=== PATIENT | male | born 1935 | race Caucasian/White ===

== ENCOUNTER 2017-11-05 10:47 | Inpatient (IN) | payer MEDICARE, MEDICAID ==
[~2017-11-05] VITALS: Ht 180.3 cm; Wt 75.7 kg
--- NOTE | 2017-11-05 11:05 | NUR ---
BIB PRIVATE EMT FROM [facility] FOR ABDOMINAL PAIN,WEAKNESS AND REFUSING TO EAT X2 DAYS. NAD NOTED, VSS, RESP EVEN AND UNLABORED, PT WAS PUT ON MONITOR, AT BS.
[2017-11-05] MEDS ORDERED: LIDOCAINE 2% JEL UROJET 10 ML MM ONE (11:33)
[2017-11-05 11:39] LABS: BASOPHILS % (AUTO) 0.1 % (0.0-2.0); EOSINOPHILS % (AUTO) 0.1 % (0.0-6.0); HEMATOCRIT 37 % (39-51); HEMOGLOBIN 12.2 g/dL (13.5-17.5); LYMPHOCYTES # (AUTO) 0.8 /CMM (0.8-4.8); LYMPHOCYTES % (AUTO) 4.4 % (20.0-44.0); MEAN CORPUSCULAR HGB CONC 33 g/dl (31.0-36.0); MEAN CORPUSCULAR VOLUME 84 fL (80-96); MONOCYTES # (AUTO) 0.2 /CMM (0.1-1.30); MONOCYTES % (AUTO) 1.2 % (2.0-12.0); NEUTROPHILS # (AUTO) 17.7 /CMM (1.8-8.9); NEUTROPHILS % (AUTO) 94.2 % (43.0-81.0); PLATELET COUNT (AUTO) 124 /CMM (150-450); RDW COEFFICIENT OF VARIATION 14.4 (11.5-15.0); RED BLOOD CELL COUNT(AUTO) 4.41 MIL/uL (4.5-6.0); WHITE BLOOD COUNT (AUTO) 18.7 K/uL (4.3-11.0)
--- NOTE | 2017-11-05 11:39 | NUR ---
MEGAN AT BS.
--- NOTE | 2017-11-05 11:48 | NUR ---
URINE SENT TO LAB
[2017-11-05 11:51] LABS: INR 1.12 (0.85-1.15)
[2017-11-05 11:52] LABS: ALANINE AMINOTRANSFERASE 21 U/L (12-78); ALBUMIN 2.2 g/dL (3.4-5.0); ALKALINE PHOSPHATASE 64 U/L (46-116); ASPARTATE AMINOTRANSFERASE 17 U/L (15-37); BILIRUBIN,DIRECT 0.5 mg/dL (0.0-0.2); BILIRUBIN,TOTAL 0.9 mg/dL (0.2-1.0); CALCIUM, SERUM 9.1 mg/dL (8.5-10.1); CARBON DIOXIDE 28 mmol/L (21-32); CHLORIDE 97 mmol/L (98-107); CREATININE 1.5 mg/dL (0.6-1.3); POTASSIUM 4.4 mmol/L (3.5-5.1); SODIUM SERUM 130 mmol/L (136-145); TOTAL PROTEIN, SERUM 8.1 g/dL (6.4-8.2); UREA NITROGEN, BLOOD 30 mg/dL (7-18)
[2017-11-05 11:53] LABS: APPEARANCE,URINE Cloudy (CLEAR); BILIRUBIN,URINE SMALL (NEGATIVE); BLOOD, URINE Small Ery/uL (NEGATIVE); COLOR,URINE Orange (YELLOW); KETONES,URINE Trace (NEGATIVE); LEUKOCYTE ESTERASE ,URINE Negative (NEGATIVE); NITRITE, URINE Negative (NEGATIVE); PH,URINE 5.5 (5.0-8.0); PROTEIN,URINE 100 mg/dl (NEGATIVE); UGLUCOSE 100 MG/DL mg/dL (NEGATIVE)
[2017-11-05 11:54] LABS: TROPONIN I < 0.017 ng/mL (0.00-0.056)
[2017-11-05 11:57] LABS: GLUCOSE 376 mg/dL (74-106)
[2017-11-05 12:18] LABS: BAND % (MANUAL) 1 % (0.0-5.0); BASOPHILS % (MANUAL) 0 % (0.0-2.0); EOSINOPHILS % (MANUAL) 1 % (0-4); LYMPHOCYTES % (MANUAL) 4 % (16-48); MONOCYTES % (MANUAL) 10 % (0-11.0); NEUTROPHILS % (MANUAL) 80 (42-76); REACTIVE LYMPHOCYTES 4 % (0-0)
--- NOTE | 2017-11-05 12:25 | NUR ---
cirilo ruffin - paged via exchange
[2017-11-05] MEDS ORDERED: VANCOMYCIN 1 GM in IV D5W 250 ML IV ONE (12:30)
[2017-11-05] MEDS ORDERED: IV NS 0.9% 1,000 ML BAG IV ONE (12:30)
[2017-11-05] MEDS ORDERED: PIPERACILLIN /TAZOBACTAM 3.375 G in IV D5W 50 ML IV ONE (12:30)
--- NOTE | 2017-11-05 12:35 | NUR ---
CALLED NURSING LINING PRINTER FOR TELE BED
--- NOTE | 2017-11-05 12:46 | NUR ---
PT TO CTSCAN
--- NOTE | 2017-11-05 14:00 | NUR ---
RECEIVED REPORT FROM YISSEL REGARDING THE PATIENT. PATIENT IS BEING ADMITTED TO TELEMETRY FLOOR BY DR. ZAMAN
[2017-11-05 14:24] LABS: BACTERIA,URINE Rare /HPF (None Seen); SQUAMOUS EPITHELIAL CELL,UR Few /HPF (None Seen)
--- NOTE | 2017-11-05 14:30 | NUR ---
CONSTRUCTION CARPENTER ADMITTING NOTE RECEIVED PATIENT FROM THE ER ON A GURNEY. PATIENT IS STABLE. VITAL SIGNS STABLE. ALERT ORIENTED X2-3, DIFFICULT TO ASSESS DUE TO PATIENT'S UNCLEAR SPEECH. COOPERATIVE. ON 2L O2 VIA NC TOLERATING WELL. IN NO APPARENT DISTRESS OR DISCOMFORT AT THIS TIME. RESPIRATIONS EVEN AND UNLABORED. DENIES PAIN AND SOB AT THIS TIME. PATIENT WAS MADE COMFORTABLE IN BED. CLEANED AND CHANGED. SKIN ASSESSED, PICTURES OF TAKEN PLACED. PHYSICAL ASSESSMENT COMPLETED, HISTORY OBTAINED FROM PREVIOUS RECORDS. PATIENT WAS PLACED ON TAVERN OPERATOR. CURRENTLY IS SINUS TACHY WITH HR OF 111. RIGHT AC 18G IVC SL, PATENT AND INTACT. PATIENT IS INCONTINENT WITH DIAPER. BELONGINGS ARE IN A BAG, CHECKED AND NOTED ON THE FORM. DR ZAMAN WAS NOTIFIED ABOUT PATIENT'S ARRIVAL. WILL CARRY OUT ALL THE ORDERS AND CONTINUE TO MONITOR.
--- NOTE | 2017-11-05 15:30 | NUR ---
DR ZAMAN AT PATIENT'S BEDSIDE. WAS ORDERED VERBALLY TO CONTINUE ALL PATIENT'S HOME MEDICATIONS, MEDICATION LIST REVIEWED WITH THE DOCTOR. FURTHER ORDERS WILL BE PLACED BY HIM . WILL CARRY OUT AND CONTINUE TO MONITOR.
[2017-11-05 16:00] VITALS: BP 130/90
[2017-11-05] MEDS ORDERED: ASPI-1152 PO (16:51)
[2017-11-05] MEDS ORDERED: ATOR10TA PO (16:51)
[2017-11-05] MEDS ORDERED: DIPH1TAB PO (16:51)
[2017-11-05] MEDS ORDERED: BENA20TA9 PO (16:51)
[2017-11-05] MEDS ORDERED: METO-356 PO (16:51)
[2017-11-05] MEDS ORDERED: CHOL100040 PO (16:51)
[2017-11-05] MEDS ORDERED: LINA5TAB PO (16:51)
[2017-11-05 17:00] VITALS: BP 160/87
[2017-11-05] MEDS ORDERED: DEXTROSE 50%-WATER 50 ML DISP.SYRIN IV PRN (17:30)
[2017-11-05] MEDS ORDERED: ALBUTEROL HALF STRENGTH 1.25 MG/3 ML VIAL.NEB NEB PRN (17:30)
[2017-11-05] MEDS ORDERED: METOPROLOL SUCCINATE 25 MG TAB.SR.24H PO SCH (17:30)
--- NOTE | 2017-11-05 17:30 | NUR ---
FINGERSTICK BLOOD GLUCOSE WAS CHECKED. READING OF 204. AWAITING FOR PHARMACY TO DELIVER PATIENT'S ORDERED INSULIN TO ADMINISTER ACCORDINGLY. WILL CONTINUE TO MONITOR.
[2017-11-05] MEDS: METOPROLOL SUCCINATE 25 MG TAB.SR.24H PO SCH (17:50)
[2017-11-05] MEDS: BLOOD SUGAR DIAGNOSTIC 1 EACH STRIP IN SCH ×2 (18:00→22:20)
--- NOTE | 2017-11-05 19:00 | NUR ---
AIR BREAKER OPERATOR CLOSING NOTE PATIENT IN BED. ALERT ORIENTED X3. SPEECH IS UNCLEAR, PATIENT HAS DIFFICULTY EXPRESSING NEEDS AT TIMES. ON 2L O2 VIA NC TOLERATING WELL. IN NO APPARENT DISTRESS OR DISCOMFORT AT THIS TIME. RESPIRATIONS EVEN AND UNLABORED. PATIENT IS CURRENTLY RECEIVING ANTIBIOTIC THERAPY. RIGHT AC 18G IVC, PATENT AND INTACT. KEPT CLEAN AND COMFORTABLE, ALL NEEDS ATTENDED, SAFETY MEASURES IN PLACE, BED IN LOW LOCKED POSITION, SIDE RAILS UP X2, CALL LIGHT WITHIN EASY REACH. WILL ENDORSE TO PM NURSE FOR MOISES.
[2017-11-05] MEDS: CEFTRIAXONE 1 G in IV D5W 50 ML IV SCH (19:10)
--- NOTE | 2017-11-05 19:25 | NUR ---
RN OPENING NOTES RECEIVED PT IN BED, ALERT AND ORIENTED X 2-3, SPEECH IS UNCLEAR BUT IS ABLE TO MAKE NEEDS KNOWN. DENIES ANY CHEST PAIN. ALL PATIENT'S NEEDS ATTENDED TO AT THIS TIME, NO SOB, BREATHING EVEN AND UNLABORED. PLACED CALL LIGHT WITHIN EASY REACH. BED IN LOW POSITION AND LOCKED IN PLACE. ON TELE MONITORING WITH ST @ 106 BPM. WILL CONTINUE TO MONITOR.
[2017-11-05 20:00] VITALS: BP 140/71
[2017-11-05] MEDS ORDERED: IBUPROFEN 600 MG TABLET PO PRN (20:30)
[2017-11-05] MEDS: DOXYCYCLINE HYCLATE (100 MG) 100 MG TABLET PO SCH (21:11)
[2017-11-05] MEDS ORDERED: ATORVASTATIN 10 MG TABLET PO SCH (22:00)
[2017-11-05] MEDS: INSULIN GLARGINE, 100 UNIT/ML CARTRIDGE SQ SCH (22:21)
[2017-11-05] MEDS: INSULIN ASPART/LISPRO 100 UNIT/ML CARTRIDGE SQ PRN (22:22)
[2017-11-06] VITALS (7 sets, daily range): BP systolic 93–145; BP diastolic 51–82
[2017-11-06] MEDS: BLOOD SUGAR DIAGNOSTIC 1 EACH STRIP IN SCH ×4 (06:34→21:28)
[2017-11-06] MEDS: INSULIN ASPART/LISPRO 100 UNIT/ML CARTRIDGE SQ PRN ×4 (06:35→21:35)
--- NOTE | 2017-11-06 06:40 | NUR ---
RN CLOSING NOTES PATIENT IN BED, ASLEEP BUT EASILY EASILY AROUSABLE, NO SOB NOTED, SLEPT WELL IN THIS SHIFT, PT BREATHING EVEN AND UNLABORED, REMAINS TO BE AFEBRILE. ON TELE MONITORING WITH ST/SR 80-100s. ALL PATIENT'S NEEDS ATTENDED TO, BED IN LOW POSITION AND LOCKED IN PLACE. CALL LIGHT PLACED WITHIN EASY REACH. WILL ENDORSE TO AM SHIFT NURSE FOR CONTINUITY OF CARE.
--- NOTE | 2017-11-06 07:20 | NUR ---
ORTHOPEDICS TEACHER OPENING NOTE RECEIVED PATIENT IN BED. ALERT ORIENTED X2-3. SPEECH IS UNCLEAR HENCE DIFFICULT TO EXPRESS NEEDS. ON 2L O2 VIA NC TOLERATING WELL. IN NO APPARENT DISTRESS OR DISCOMFORT AT THIS TIME. RESPIRATIONS EVEN AND UNLABORED. DENIES PAIN AND SOB AT THIS TIME. RIGHT AC 18G IVC, SALINE LOCK, PATENT AND INTACT. KEPT CLEAN AND COMFORTABLE, ALL NEEDS ATTENDED, SAFETY MEASURES IN PLACE, BED IN LOW LOCKED POSITION, SIDE RAILS UP X2, CALL LIGHT WITHIN EASY REACH. WILL CONTINUE TO MONITOR.
[2017-11-06 07:29] LABS: URIC ACID 4.5 mg/dL (2.6-7.2)
[2017-11-06] MEDS ORDERED: BENAZEPRIL HCL 5 MG TABLET PO SCH (09:00)
[2017-11-06] MEDS ORDERED: ASPIRIN EC 81 MG TABLET.DR PO SCH (09:00)
[2017-11-06] MEDS ORDERED: DIPHENOXYLATE HCL/ATROP SULF 1 UDTAB TABLET PO PRN (09:00)
[2017-11-06] MEDS: ATORVASTATIN 10 MG TABLET PO SCH (09:10)
[2017-11-06] MEDS: ASPIRIN EC 81 MG TABLET.DR PO SCH (09:10)
[2017-11-06] MEDS: LINAGLIPTIN 5 MG TABLET PO SCH (09:10)
[2017-11-06] MEDS: DOXYCYCLINE HYCLATE (100 MG) 100 MG TABLET PO SCH ×2 (09:10→20:38)
[2017-11-06] MEDS: BENAZEPRIL HCL 20 MG TABLET PO SCH (09:10)
--- NOTE | 2017-11-06 13:41 | NUR ---
RECEIVED TELEPHONE ORDER FROM DR. ZAMAN TO GIVE MOTRIN 600MG PO Q6HRS PRN FOR MILD PAIN LEVEL 1-3. ORDER READ BACK AND VERIFIED. WILL CARRY OUT AND CONTINUE TO MONITOR.
[2017-11-06] MEDS: IBUPROFEN 600 MG TABLET PO PRN (14:55)
[2017-11-06] MEDS: CEFTRIAXONE 1 G in IV D5W 50 ML IV SCH (17:06)
[2017-11-06] MEDS: METOPROLOL SUCCINATE 25 MG TAB.SR.24H PO SCH (17:07)
--- NOTE | 2017-11-06 18:28 | NUR ---
PULP MAKING PLANT OPERATOR CLOSING NOTE PATIENT IN BED. ALERT ORIENTED X3. SPEECH IS UNCLEAR. ON 2L O2 VIA NC TOLERATING WELL. IN NO APPARENT DISTRESS OR DISCOMFORT AT THIS TIME. RESPIRATIONS EVEN AND UNLABORED. PATIENT ON TELE MONITORING WITH SINUS RHYTHM/SINUS TACHY 90-110 THROUGHOUT THE SHIFT. NO FEVER PRESENT, RIGHT SHOULDER PAIN, CONTROLLED WITH PAIN MEDICATION. RIGHT AC 18G IVC, PATENT AND INTACT. KEPT CLEAN AND COMFORTABLE, ALL NEEDS ATTENDED, ALL DUE MEDICATIONS GIVEN. SAFETY MEASURES IN PLACE, BED IN LOW LOCKED POSITION, SIDE RAILS UP X3, CALL LIGHT WITHIN EASY REACH. WILL ENDORSE TO PM NURSE FOR MOISES.
--- NOTE | 2017-11-06 18:46 | NUR ---
PATIENT REPORTS FEELING WEAK AND SLEEPY. NOTED MILD PERSPIRATION, PATIENT IS AFEBRILE. VITAL SIGNS ARE WNL. BLOOD GLUCOSE CHECKED READING IS 202. RECEIVED DAILY ORDERED ANTIBIOTIC THERAPY. DECREASED ROOM TEMPERATURE TO COLLER. WILL CONTINUE TO MONITOR FOR CHANGES AT THIS TIME.
--- NOTE | 2017-11-06 20:15 | NUR ---
recieved asleep. resp even and unlabored. 02 on 2 liters skin warm and dry. answers when name spoken speech mumbled but able to understand him when he asked what time it was
[2017-11-06] MEDS: INSULIN GLARGINE, 100 UNIT/ML CARTRIDGE SQ SCH (21:36)
[2017-11-07] VITALS (7 sets, daily range): BP systolic 112–166; BP diastolic 69–99
--- NOTE | 2017-11-07 05:09 | NUR ---
ENDING NOTES: SLEPT THRU THE NIGHT. NO SOB O2 2 LITERS N/C THIS 12 HOURS SATS ABOVE 92%. NOTED HE C/O RIGHT SHOULDER DISCOMFORT WHEN TURNED TO THE RIGHT SIDE OR RIGHT ARM IS LIFTED. HE REMAINS ALERT AND ORIENTATED X3 THIS 12 HOURS. COOPERATIVE AND PLEASENT. NOTED SACRAL REDNESS APPEARS TO BE INCONTINENT SKIN DAMAGE . HE IS NOT COOPERATIVE ABOUT LYING ON HIS SIDES, PILLOWS PLACED TO ASSIST HIS TO LAY ON HIS SIDE.\, HE SCOOTS OFF THE PILLOWS AND WILL BE ON HIS BACK. INCONTINENT, WEARING DIAPER.
[2017-11-07] MEDS: INSULIN ASPART/LISPRO 100 UNIT/ML CARTRIDGE SQ PRN ×4 (06:12→21:51)
[2017-11-07] MEDS: BLOOD SUGAR DIAGNOSTIC 1 EACH STRIP IN SCH ×4 (06:14→21:43)
--- NOTE | 2017-11-07 07:15 | NUR ---
TELE/RN OPENING NOTE THE PATIENT IS RECEIVED IN BED. PATIENT AWAKE. ALERT AND ORIENTED X2. DENIES SOB. RECEIVING OXYGEN 2L/MIN VIA NASAL CANNULA. DENIES PAIN AT THIS TIME. RIGHT HAND G 20 PATENT AND SALINE LOCKED. PATIENT ON TELE BOX MONITORING AND READING IS SR 98 WITH PAC AND PVC. THE PATIENT IN NO APPARENT DISTRESS. BED LOW AND LOCKED. SIDE RAILS UP X3. CALL LIGHT WITHIN REACH. WILL CONTINUE TO MONITOR.
[2017-11-07 07:31] LABS: BASOPHILS # (AUTO) 0.1 /CMM (0.0-0.2); BASOPHILS % (AUTO) 0.3 % (0.0-2.0); EOSINOPHILS % (AUTO) 0.1 % (0.0-6.0); HEMATOCRIT 33 % (39-51); HEMOGLOBIN 10.8 g/dL (13.5-17.5); LYMPHOCYTES # (AUTO) 1.2 /CMM (0.8-4.8); LYMPHOCYTES % (AUTO) 6.7 % (20.0-44.0); MEAN CORPUSCULAR HGB CONC 33 g/dl (31.0-36.0); MEAN CORPUSCULAR VOLUME 84 fL (80-96); MONOCYTES # (AUTO) 0.7 /CMM (0.1-1.30); MONOCYTES % (AUTO) 3.6 % (2.0-12.0); NEUTROPHILS # (AUTO) 16.5 /CMM (1.8-8.9); NEUTROPHILS % (AUTO) 89.3 % (43.0-81.0); PLATELET COUNT (AUTO) 101 /CMM (150-450); RDW COEFFICIENT OF VARIATION 14.3 (11.5-15.0); RED BLOOD CELL COUNT(AUTO) 3.89 MIL/uL (4.5-6.0); WHITE BLOOD COUNT (AUTO) 18.5 K/uL (4.3-11.0)
[2017-11-07] MEDS: IBUPROFEN 600 MG TABLET PO PRN (08:31)
[2017-11-07] MEDS: LINAGLIPTIN 5 MG TABLET PO SCH (08:32)
[2017-11-07] MEDS: DOXYCYCLINE HYCLATE (100 MG) 100 MG TABLET PO SCH ×2 (08:32→20:50)
[2017-11-07] MEDS: ATORVASTATIN 10 MG TABLET PO SCH (08:33)
[2017-11-07] MEDS: BENAZEPRIL HCL 20 MG TABLET PO SCH (08:33)
[2017-11-07] MEDS: ASPIRIN EC 81 MG TABLET.DR PO SCH (08:37)
--- NOTE | 2017-11-07 12:21 | NUR ---
MS/RN NOTE PATIENT IS SEEN BY DR ZAMAN. MD IS MADE AWARE OF BNP RESULT AND NO NEW ORDERS AT THIS TIME. OBTAINED WOUND CONSULT ORDER. NOTED AND CARRIED OUT.
[2017-11-07] MEDS ORDERED: DICLOFENAC 0.1% OPTH DROPS 5 ML BOTTLE EACHEYE SCH (17:00)
[2017-11-07] MEDS: CEFTRIAXONE 1 G in IV D5W 50 ML IV SCH (18:03)
[2017-11-07] MEDS: METOPROLOL SUCCINATE 25 MG TAB.SR.24H PO SCH (18:03)
--- NOTE | 2017-11-07 18:19 | NUR ---
MS/RN CLOSING NOTE PATIENT IS ALERT AND ORIENTED X2. IN ROOM AIR AND DENIES PAIN AT THIS TIME. RESPIRATION REGULAR AND UNLABORED. DENIES PAIN AT THIS TIME. RIGHT HAND G 20 PATENT AND IV ATB INFUSING WITH NO S/S INFILTRATION. NO ADVERSE REACTIONS NOTED. PATIENT IS INCONTINENT ON BOWEL AND BLADDER. GOOD AND GENTLE SKIN CARE RENDERED. KEPT CLEAN, DRY AND COMFORTABLE. TURNED AND REPOSITIONED Q2HR AND NEEDED. THE MEPILEX IS APPLIED ON SACRAL AREA, WAITING FOR WOUND CONSULT. BED LOW AND LOCKED. SIDE RAILS UP X3. CALL LIGHT WITHIN REACH. WILL ENDORSE TO PUBLIC RELATIONS ANALYST.
--- NOTE | 2017-11-07 19:10 | NUR ---
MS RN OPENING NOTE Patient was seen sitting upright in bed AAOx1, breathing on 2L NC with no SOB, and no signs of acute distress. Patient has history of dementia and "sun-downing"; speech is somewhat garbled. IV in the right hand is intact and patent. Bed is low/locked position, two side rails up, bed alarm on, and call morley within reach. Patient was made comfortable in bed and has no immediate needs at this time. Will continue to monitor.
[2017-11-07] MEDS: DICLOFENAC TOPICAL 100 GM GEL..GM. TP SCH (20:50)
[2017-11-07] MEDS ORDERED: MISCELLANEOUS MED 1 EA EA XX SCH (21:00)
[2017-11-07] MEDS: INSULIN GLARGINE, 100 UNIT/ML CARTRIDGE SQ SCH (21:44)
[2017-11-08 06:21] LABS: EOSINOPHILS % (AUTO) 0.4 % (0.0-6.0); HEMATOCRIT 31 % (39-51); HEMOGLOBIN 10.1 g/dL (13.5-17.5); LYMPHOCYTES # (AUTO) 1.9 /CMM (0.8-4.8); MEAN CORPUSCULAR HGB CONC 32 g/dl (31.0-36.0); MEAN CORPUSCULAR VOLUME 86 fL (80-96); MONOCYTES % (AUTO) 14.2 % (2.0-12.0); NEUTROPHILS % (AUTO) 76.4 % (43.0-81.0); PLATELET COUNT (AUTO) 101 /CMM (150-450); RDW COEFFICIENT OF VARIATION 15.7 (11.5-15.0); RED BLOOD CELL COUNT(AUTO) 3.63 MIL/uL (4.5-6.0)
[2017-11-08] MEDS: BLOOD SUGAR DIAGNOSTIC 1 EACH STRIP IN SCH ×4 (06:37→21:45)
--- NOTE | 2017-11-08 07:12 | NUR ---
MS RN NOTES PATIENT IN BED ALERT ORIENTED X 1-2. NO ACUTE DISTRESS NOTED. BREATHING UNLABORED. NO SOB NOTED. DENIED ANY PAIN. IV ACCESS PATENT AND INTACT, NO REDNESS OR SWELLING NOTED. SAFETY MEASURES IN PLACE.CALL LIGHT WITHIN REACH. WILL CONTINUE TO MONITOR ACCORDINGLY.
--- NOTE | 2017-11-08 07:28 | NUR ---
MS RN CLOSING NOTE Patient is sleeping in bed but awakens easily to name; he is AAOx1-2, breathing comfortably on 2L O2 NC with no SOB, and no signs of acute distress. Speech is unclear at times, but patient also has no teeth and no dentures. IV in right hand is intact and patent. Patient slept well overnight with no complications. Bed is in the low/locked position, two side rails up, and call morley within reach. Patient care endorsed to day shift nurse.
[2017-11-08 08:00] VITALS: BP 151/83
[2017-11-08] MEDS: BENAZEPRIL HCL 20 MG TABLET PO SCH (08:18)
[2017-11-08] MEDS: ASPIRIN EC 81 MG TABLET.DR PO SCH (08:18)
[2017-11-08] MEDS: DOXYCYCLINE HYCLATE (100 MG) 100 MG TABLET PO SCH ×2 (08:18→21:31)
[2017-11-08] MEDS: LINAGLIPTIN 5 MG TABLET PO SCH (08:18)
[2017-11-08] MEDS: ATORVASTATIN 10 MG TABLET PO SCH (08:18)
[2017-11-08] MEDS: DICLOFENAC TOPICAL 100 GM GEL..GM. TP SCH ×4 (08:20→21:31)
[2017-11-08] MEDS: INSULIN ASPART/LISPRO 100 UNIT/ML CARTRIDGE SQ PRN ×3 (12:00→21:43)
--- NOTE | 2017-11-08 12:29 | NUR ---
MS RN NOTES SEEN AND EVALUATED BY DR ROSINA ZAMAN WITH ORDERS FOR STAT PROCALCITONIN. NOTED AND CARRIED OUT.
--- NOTE | 2017-11-08 12:30 | NUR ---
MS RN NOTES DR ZAMAN AWARE OF ELEVATED WBC.
--- NOTE | 2017-11-08 12:45 | NUR ---
WOUND CARE CONSULT: PT PRESENTS WITH UNSTAGEABLE SACRAL ULCER, CALLUSES TO FEET AND RT ELBOW BLANCHABLE REDNESS WITH SWELLING, PRESENT ON ADMISSION. RECOMMENDATIONS MADE FOR WOUND CARE AND SKIN PROTECTION. DISCUSSED WITH NURSING STAFF. RECOMMEND SURGICAL CONSULT. PT ON DONNA ISOFLEX LOW AIRLOSS BED. WILL SEE PRN. IN AGREEMENT WITH PLAN OF CARE.
[2017-11-08] MEDS ORDERED: Z GUARD REMEDY 2 OZ OINT TP PRN (13:00)
[2017-11-08] MEDS: Z GUARD REMEDY 2 OZ OINT TP SCH (14:34)
[2017-11-08] MEDS: HYDROGEL DRESSING 90 GM TUBE TP SCH (14:34)
[2017-11-08 15:47] VITALS: BP 155/95
[2017-11-08] MEDS: CEFTRIAXONE 1 G in IV D5W 50 ML IV SCH (17:21)
[2017-11-08] MEDS: METOPROLOL SUCCINATE 25 MG TAB.SR.24H PO SCH (17:23)
--- NOTE | 2017-11-08 18:55 | NUR ---
MS RN NOTES PATIENT IN BED ALERT ORIENTED X 1-2. NO ACUTE DISTRESS NOTED. BREATHING UNLABORED. NO SOB NOTED. DENIED ANY PAIN. IV ACCESS PATENT AND INTACT, NO REDNESS OR SWELLING NOTED. DUE MEDICATIONS GIVEN., NO ASE NOTED. KEPT CLEAN, DRY AND COMFORTABLE. NEEDS ATTENDED AND ANTICIPATED. REPOSITIONED PER PROTOCOL. SAFETY MEASURES IN PLACE.CALL LIGHT WITHIN REACH.WILL ENDORS TO NIGHT NURSE TO CONTINUITY OF CARE.
--- NOTE | 2017-11-08 19:30 | NUR ---
MS RN OPENING NOTES PT IN BED AWAKE A/O X 1-2. NO ACUTE DISTRESS NOTED. BREATHING UNLABORED. NO SOB NOTED. DENIED PAIN. IV ACCESS PATENT AND INTACT.PT ON O2 VIA NC 2L TOLERATING WELL. SAFETY MEASURES IN PLACE.CALL LIGHT WITHIN REACH.WILL CONTINUE TO MONITOR.
[2017-11-08 20:00] VITALS: BP 135/66
[2017-11-08 20:10] VITALS: BP 135/66
[2017-11-08] MEDS: INSULIN GLARGINE, 100 UNIT/ML CARTRIDGE SQ SCH (21:37)
[2017-11-09] MEDS: BLOOD SUGAR DIAGNOSTIC 1 EACH STRIP IN SCH ×4 (06:38→22:01)
[2017-11-09] MEDS: INSULIN ASPART/LISPRO 100 UNIT/ML CARTRIDGE SQ PRN ×3 (06:40→17:12)
--- NOTE | 2017-11-09 07:10 | NUR ---
MS RN NOTES PATIENT LYING IN BED EYES CLOSED, EASILY AROUSABLE .RESPOND TO VERBAL AND TACTILE STIMULI. NO ACUTE DISTRESS NOTED. BREATHING UNLABORED. NO SOB NOTED. DENIED ANY PAIN. IV ACCESS PATENT AND INTACT, NO REDNESS OR SWELLING NOTED. SAFETY MEASURES IN PLACE.CALL LIGHT WITHIN REACH. WILL CONTINUE TO MONITOR ACCORDINGLY.
--- NOTE | 2017-11-09 07:11 | NUR ---
MS RN CLOSING NOTES IN BED AWAKE A/O X 1-2. NO ACUTE DISTRESS NOTED. BREATHING UNLABORED. NO SOB NOTED. DENIED PAIN. IV ACCESS PATENT AND INTACT.PT ON O2 VIA NC 2L TOLERATING WELL. SAFETY MEASURES IN PLACE.CALL LIGHT WITHIN REACH.NEEDS ATTENDED, MEDS ARE GIVEN. NO CHANGES IN PT CONDITION DURING THE NIGHT.WILL ENDORSE TO NEXT SHIFT FOR MOISES.
[2017-11-09 07:21] LABS: EOSINOPHILS % (AUTO) 0.2 % (0.0-6.0); HEMATOCRIT 30 % (39-51); HEMOGLOBIN 9.8 g/dL (13.5-17.5); LYMPHOCYTES # (AUTO) 1.9 /CMM (0.8-4.8); LYMPHOCYTES % (AUTO) 9.6 % (20.0-44.0); MEAN CORPUSCULAR HGB CONC 33 g/dl (31.0-36.0); MEAN CORPUSCULAR VOLUME 88 fL (80-96); MONOCYTES # (AUTO) 0.1 /CMM (0.1-1.30); MONOCYTES % (AUTO) 0.6 % (2.0-12.0); NEUTROPHILS # (AUTO) 17.8 /CMM (1.8-8.9); NEUTROPHILS % (AUTO) 89.6 % (43.0-81.0); PLATELET COUNT (AUTO) 92 /CMM (150-450); RDW COEFFICIENT OF VARIATION 15.3 (11.5-15.0); RED BLOOD CELL COUNT(AUTO) 3.43 MIL/uL (4.5-6.0); WHITE BLOOD COUNT (AUTO) 19.9 K/uL (4.3-11.0)
[2017-11-09 08:00] VITALS: BP 108/62
[2017-11-09] MEDS: ASPIRIN EC 81 MG TABLET.DR PO SCH (08:29)
[2017-11-09] MEDS: ATORVASTATIN 10 MG TABLET PO SCH (08:29)
[2017-11-09] MEDS: DOXYCYCLINE HYCLATE (100 MG) 100 MG TABLET PO SCH ×2 (08:29→20:46)
[2017-11-09] MEDS: LINAGLIPTIN 5 MG TABLET PO SCH (08:29)
[2017-11-09] MEDS: HYDROGEL DRESSING 90 GM TUBE TP SCH (08:30)
[2017-11-09] MEDS: DICLOFENAC TOPICAL 100 GM GEL..GM. TP SCH ×4 (08:30→20:47)
[2017-11-09] MEDS: Z GUARD REMEDY 2 OZ OINT TP SCH (08:31)
[2017-11-09] MEDS: BENAZEPRIL HCL 20 MG TABLET PO SCH (09:04)
[2017-11-09 09:41] LABS: LYMPHOCYTES % (MANUAL) 14 % (16-48); MONOCYTES % (MANUAL) 5 % (0-11.0); NEUTROPHILS % (MANUAL) 81 (42-76)
[2017-11-09 16:00] VITALS: BP 134/69
[2017-11-09] MEDS: CEFTRIAXONE 1 G in IV D5W 50 ML IV SCH (17:07)
[2017-11-09] MEDS: METOPROLOL SUCCINATE 25 MG TAB.SR.24H PO SCH (17:15)
--- NOTE | 2017-11-09 19:00 | NUR ---
MS RN NOTES PATIENT IN BED ALERT ORIENTED X2. NO ACUTE DISTRESS NOTED. BREATHING UNLABORED. NO SOB NOTED. DENIED ANY PAIN. IV ACCESS PATENT AND INTACT, NO REDNESS OR SWELLING NOTED. DUE MEDICATIONS GIVEN, NO ASE NOTED. NEEDS ATTENDED AND ANTICIPATED. SAFETY MEASURES IN PLACE.CALL LIGHT WITHIN REACH. ENDORSED TO NIGHT NURSE FOR CONTINUITY OF CARE.
[2017-11-09 20:00] VITALS: BP 155/80
--- NOTE | 2017-11-09 20:09 | NUR ---
CALLED PT SISTER ANTOINETTE [phone] TO OBTAIN A VERBAL CONCEIT FOR PROCEDURE. SHE IS NOT AVAILABLE , LEFT A VOICE MESSAGE. WILL CALL LATER.
[2017-11-09 20:28] VITALS: BP 155/80
--- NOTE | 2017-11-09 21:03 | NUR ---
TELEPHONE CONSENT WAS GIVEN BY ANTOINETTE DOAN (PT'S SISTER). WITNESSED BY JERZY GONZALES. TYREEHED CONCENT PLACED IN THE PT'S CHART. 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
[2017-11-09] MEDS: INSULIN GLARGINE, 100 UNIT/ML CARTRIDGE SQ SCH (22:07)
[2017-11-10 05:54] LABS: HEMATOCRIT 33 % (39-51); HEMOGLOBIN 10.7 g/dL (13.5-17.5); LYMPHOCYTES # (AUTO) 1.7 /CMM (0.8-4.8); LYMPHOCYTES % (AUTO) 6.1 % (20.0-44.0); MEAN CORPUSCULAR HGB CONC 33 g/dl (31.0-36.0); MEAN CORPUSCULAR VOLUME 87 fL (80-96); MONOCYTES # (AUTO) 0.5 /CMM (0.1-1.30); MONOCYTES % (AUTO) 1.8 % (2.0-12.0); NEUTROPHILS # (AUTO) 26.2 /CMM (1.8-8.9); NEUTROPHILS % (AUTO) 92.1 % (43.0-81.0); PLATELET COUNT (AUTO) 83 /CMM (150-450); RDW COEFFICIENT OF VARIATION 15.4 (11.5-15.0); RED BLOOD CELL COUNT(AUTO) 3.77 MIL/uL (4.5-6.0); WHITE BLOOD COUNT (AUTO) 28.5 K/uL (4.3-11.0)
[2017-11-10] MEDS: BLOOD SUGAR DIAGNOSTIC 1 EACH STRIP IN SCH ×4 (06:39→21:15)
[2017-11-10] MEDS: INSULIN ASPART/LISPRO 100 UNIT/ML CARTRIDGE SQ PRN ×4 (06:44→21:19)
--- NOTE | 2017-11-10 07:01 | NUR ---
MS RN CLOSING NOTES PT IN BED AWAKE A/O X 1-2. NO ACUTE DISTRESS NOTED. BREATHING UNLABORED. NO SOB NOTED. IV ACCESS PATENT AND INTACT S/L FLUSHING WELL.PT ON O2 VIA NC 2L TOLERATING WELL. SAFETY MEASURES IN PLACE.CALL LIGHT WITHIN REACH.NEEDS ATTENDED, MEDS ARE GIVEN.PT DOES NOT HAVE ANY PAIN MEDS PRESCRIBED.WILL ENDORSE TO NEXT SHIFT FOR MOISES.
--- NOTE | 2017-11-10 07:10 | NUR ---
RN OPENING NOTES RECEIVED PT. IN BED A&OX1, CONFUSED. BREATHING UNLABORED ON OXYGEN AT 2L/MIN VIA NASAL CANNULA. NO S/S OF ACUTE DISTRESS.BED IS IN LOWEST, AND LOCKED POSITION. ALL NEEDS MET. WILL CONTINUE TO ASSESS AND MONITOR.
[2017-11-10 08:00] VITALS: BP 156/62
[2017-11-10 08:40] LABS: LYMPHOCYTES % (MANUAL) 7 % (16-48); MONOCYTES % (MANUAL) 13 % (0-11.0); NEUTROPHILS % (MANUAL) 80 (42-76)
[2017-11-10] MEDS: DICLOFENAC TOPICAL 100 GM GEL..GM. TP SCH ×4 (09:00→20:06)
[2017-11-10] MEDS: HYDROGEL DRESSING 90 GM TUBE TP PRN (09:01)
[2017-11-10] MEDS: HYDROGEL DRESSING 90 GM TUBE TP SCH (09:01)
[2017-11-10] MEDS: Z GUARD REMEDY 2 OZ OINT TP SCH (09:02)
[2017-11-10] MEDS: ASPIRIN EC 81 MG TABLET.DR PO SCH (09:07)
[2017-11-10] MEDS: DOXYCYCLINE HYCLATE (100 MG) 100 MG TABLET PO SCH ×2 (09:07→20:05)
[2017-11-10] MEDS: BENAZEPRIL HCL 20 MG TABLET PO SCH (09:07)
[2017-11-10] MEDS: ATORVASTATIN 10 MG TABLET PO SCH (09:08)
[2017-11-10] MEDS: LINAGLIPTIN 5 MG TABLET PO SCH (09:08)
[2017-11-10 16:00] VITALS: BP 127/67
[2017-11-10] MEDS: METOPROLOL SUCCINATE 25 MG TAB.SR.24H PO SCH (18:11)
[2017-11-10] MEDS: CEFTRIAXONE 1 G in IV D5W 50 ML IV SCH (18:17)
--- NOTE | 2017-11-10 19:15 | NUR ---
MS RN OPENING NOTES: RECEIVED PT ON 2LPM VIA NC AND IS TOLERATING WELL. PT HAS IV ON L FOREARM AND IS BEING INFUSED WITH ROCEPHIN AT THIS TIME. PT HAS GARBLED SPEECH. PT IS A/OX1. BED ALARM ACTIVATED. CALL LIGHT WITHIN PT'S REACH. BED KEPT IN LOW, LOCKED POSITION, SEMI-SANCHEZ'S, AND SIDE RAILS X 2 UP. WILL CONTINUE TO MONITOR PT.
--- NOTE | 2017-11-10 19:30 | NUR ---
RN CLOSING NOTES PT. IS IN BED A&OX2. BREATHING UNLABORED ON OXYGEN AT 2L/MIN VIA NASAL CANNULA. NO S/S OF ACUTE DISTRESS.NEW IV ACCESS ON LEFT FOREARM GAUGE 20 WITH IV ANTIBIOTICS RUNNING. BED IS IN LOWEST, AND LOCKED POSITION. ALL NEEDS MET. WILL ENDORSE REPORT TO NURSE.
[2017-11-10 20:00] VITALS: BP 141/70
[2017-11-10] MEDS: INSULIN GLARGINE, 100 UNIT/ML CARTRIDGE SQ SCH (21:19)
[2017-11-11] MEDS: BLOOD SUGAR DIAGNOSTIC 1 EACH STRIP IN SCH ×4 (06:02→21:12)
[2017-11-11] MEDS: INSULIN ASPART/LISPRO 100 UNIT/ML CARTRIDGE SQ PRN ×4 (06:05→21:16)
--- NOTE | 2017-11-11 06:13 | NUR ---
MS RN NOTES: BLOOD SUGAR THIS AM WAS 202. 4 UNITS OF INSULIN WAS ADMINISTERED. SNACK WAS PROVIDED. WILL ENDORSE TO AM NURSE FOR MOISES.
[2017-11-11 06:31] LABS: HEMATOCRIT 31 % (39-51); HEMOGLOBIN 9.8 g/dL (13.5-17.5); LYMPHOCYTES # (AUTO) 2.3 /CMM (0.8-4.8); LYMPHOCYTES % (AUTO) 6.2 % (20.0-44.0); MEAN CORPUSCULAR HGB CONC 32 g/dl (31.0-36.0); MEAN CORPUSCULAR VOLUME 87 fL (80-96); MONOCYTES # (AUTO) 5.9 /CMM (0.1-1.30); MONOCYTES % (AUTO) 15.9 % (2.0-12.0); NEUTROPHILS % (AUTO) 77.9 % (43.0-81.0); PLATELET COUNT (AUTO) 81 /CMM (150-450); RDW COEFFICIENT OF VARIATION 15.2 (11.5-15.0); RED BLOOD CELL COUNT(AUTO) 3.52 MIL/uL (4.5-6.0)
[2017-11-11 06:59] LABS: WHITE BLOOD COUNT (AUTO) 37.3 K/uL (4.3-11.0)
[2017-11-11 07:29] LABS: BAND % (MANUAL) 5 % (0.0-5.0); LYMPHOCYTES % (MANUAL) 5 % (16-48); MONOCYTES % (MANUAL) 10 % (0-11.0); NEUTROPHILS % (MANUAL) 80 (42-76)
[2017-11-11 08:00] VITALS: BP 101/73
[2017-11-11] MEDS: ATORVASTATIN 10 MG TABLET PO SCH (08:53)
[2017-11-11] MEDS: LINAGLIPTIN 5 MG TABLET PO SCH (08:53)
[2017-11-11] MEDS: BENAZEPRIL HCL 20 MG TABLET PO SCH (08:53)
[2017-11-11] MEDS: ASPIRIN EC 81 MG TABLET.DR PO SCH (08:53)
[2017-11-11] MEDS: DOXYCYCLINE HYCLATE (100 MG) 100 MG TABLET PO SCH (08:53)
[2017-11-11] MEDS: DICLOFENAC TOPICAL 100 GM GEL..GM. TP SCH ×4 (08:55→20:50)
[2017-11-11] MEDS: Z GUARD REMEDY 2 OZ OINT TP SCH (08:55)
[2017-11-11] MEDS: HYDROGEL DRESSING 90 GM TUBE TP SCH (08:55)
[2017-11-11] MEDS ORDERED: AZITHROMYCIN 500 MG in IV D5W 250 ML IV SCH (13:00)
--- NOTE | 2017-11-11 14:47 | NUR ---
ALERT, ORIENTED, C/O RIGHT UPPER QUADRANT PAIN, WHEN PALPATED HIM. ATTENDING MADE AWARE, FOR PAIN MEDS. TYLENOL ORDERED. 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 APPETITE POOR OVERALL
[2017-11-11] MEDS ORDERED: ACETAMINOPHEN 325 MG TABLET PO PRN (15:00)
[2017-11-11] MEDS ORDERED: IV NS 0.9% 1,000 ML BAG IV PRN (17:00)
[2017-11-11] MEDS: METOPROLOL SUCCINATE 25 MG TAB.SR.24H PO SCH (17:05)
[2017-11-11] MEDS: HYDROMORPHONE 1 MG/1 ML DISP.SYRIN IV PRN (17:37)
--- NOTE | 2017-11-11 17:47 | NUR ---
C/O RIGHT UPPER QUADRANT PAIN, 10/29, JUST NOW DILAUDID 0.25MG IVP GIVEN. VANCO SOLUTION INITIATED, FLAGYL IVPB ON THE WAY, C DIFF+. MIDDLE OF COCCYX, OOZY, MALODOROUS, DRESSING CHANGED FOR NOW.AWAITING DEBRIDMENT.
[2017-11-11] MEDS: METRONIDAZOLE 500MG/ NS 100ML 500 MG in PREMIX 1 EA IV SCH (17:54)
[2017-11-11] MEDS: VANCOMYCIN HCL 125 MG/2.5 ML ORAL.SUSP PO SCH (18:13)
[2017-11-11 18:22] LABS: ALANINE AMINOTRANSFERASE 45 U/L (12-78); ALBUMIN 1.5 g/dL (3.4-5.0); ALKALINE PHOSPHATASE 52 U/L (46-116); ASPARTATE AMINOTRANSFERASE 59 U/L (15-37); BILIRUBIN,TOTAL 0.4 mg/dL (0.2-1.0); CALCIUM, SERUM 8.7 mg/dL (8.5-10.1); CARBON DIOXIDE 24 mmol/L (21-32); CHLORIDE 102 mmol/L (98-107); CREATININE 1.6 mg/dL (0.6-1.3); GLUCOSE 191 mg/dL (74-106); POTASSIUM 4.3 mmol/L (3.5-5.1); SODIUM SERUM 138 mmol/L (136-145); TOTAL PROTEIN, SERUM 6.9 g/dL (6.4-8.2); UREA NITROGEN, BLOOD 57 mg/dL (7-18)
--- NOTE | 2017-11-11 18:31 | NUR ---
1830 fell asleep after dilaudid administration, last set of vital sign, tachycardia noted, ( double checked still in the 105-108's range), WBC trending up 37 today. When checked bmp, drawn at 0600 this am , result still pending. Very likely debridment will be deferred secondary to leukocytosis. Patient is to get transferred to [facility] per the attending.
--- NOTE | 2017-11-11 19:30 | NUR ---
RECEIVED PATIENT IN BED ASLEEP, EASILY AROUSABLE. AO TO SELF. NO ACUTE DISTRESS NOTED. NO SIGNS OF PAIN NOTED. IV SITE PATENT, INTACT; IVF INFUSING ORDERED. SAFETY REMINDERS GIVEN. ON LOW BED WITH BILATERAL UPPER SIDE RAILS UP. CALL MUELLER WITHIN EASY REACH. WILL CONTINUE TO MONITOR.
--- NOTE | 2017-11-11 20:25 | NUR ---
PATIENT TRANSFERRED TO [facility] ROOM 120-[address] ZAMAN'S ORDER. REPORT HAVE BEEN GIVEN TO SLY GONZALES FOR CONTINUITY OF CARE. BELONGINGS AND MEDICATION TRANSFERRED WITH PATIENT.
[2017-11-11 20:30] VITALS: BP 98/47
--- NOTE | 2017-11-11 20:30 | NUR ---
RN NOTE RECEIVED PATIENT FROM MED SURG 3RD FLOOR (PRIMARY NURSE RVI), DX PNA, ON 2L/MIN VIA NASAL CANULA, O2 SAT 95%, LETHARGIC, CONFUSED, ASLEEP BUT EASILY AWAKEN, ORIENTED TO NAME ONLY, SR ON THE MONITOR, INCONTINENT, ONGOING IV FLUIDS, ALL SKIN PICTURES TAKEN AND PLACED IN THE CHART, ALL SAFETY MEASURES TAKEN, WILL CONTINUE TO MONITOR PATIENT
[2017-11-11] MEDS: INSULIN GLARGINE, 100 UNIT/ML CARTRIDGE SQ SCH (21:17)
[2017-11-12] VITALS: BP_SYST 154; BP_SYST 98; BP_DIAS 47; BP_DIAS 67
[2017-11-12] MEDS: VANCOMYCIN HCL 125 MG/2.5 ML ORAL.SUSP PO SCH ×5 (00:35→23:34)
[2017-11-12] MEDS: METRONIDAZOLE 500MG/ NS 100ML 500 MG in PREMIX 1 EA IV SCH ×4 (00:35→23:34)
[2017-11-12 04:00] VITALS: BP 112/62
[2017-11-12 06:55] LABS: EOSINOPHILS % (AUTO) 0.1 % (0.0-6.0); HEMATOCRIT 29 % (39-51); HEMOGLOBIN 9.3 g/dL (13.5-17.5); LYMPHOCYTES # (AUTO) 1.6 /CMM (0.8-4.8); LYMPHOCYTES % (AUTO) 5.2 % (20.0-44.0); MEAN CORPUSCULAR HGB CONC 32 g/dl (31.0-36.0); MEAN CORPUSCULAR VOLUME 86 fL (80-96); MONOCYTES # (AUTO) 0.1 /CMM (0.1-1.30); MONOCYTES % (AUTO) 0.4 % (2.0-12.0); NEUTROPHILS # (AUTO) 29.2 /CMM (1.8-8.9); NEUTROPHILS % (AUTO) 94.3 % (43.0-81.0); PLATELET COUNT (AUTO) 67 /CMM (150-450); RDW COEFFICIENT OF VARIATION 15.4 (11.5-15.0); RED BLOOD CELL COUNT(AUTO) 3.36 MIL/uL (4.5-6.0)
[2017-11-12 08:00] VITALS: BP 117/60
[2017-11-12] MEDS: BLOOD SUGAR DIAGNOSTIC 1 EACH STRIP IN SCH ×4 (08:46→21:18)
[2017-11-12] MEDS: ASPIRIN EC 81 MG TABLET.DR PO SCH (09:40)
[2017-11-12] MEDS: LINAGLIPTIN 5 MG TABLET PO SCH (09:40)
[2017-11-12] MEDS: ATORVASTATIN 10 MG TABLET PO SCH (09:40)
[2017-11-12] MEDS: BENAZEPRIL HCL 20 MG TABLET PO SCH (09:42)
[2017-11-12] MEDS: DICLOFENAC TOPICAL 100 GM GEL..GM. TP SCH ×4 (09:44→21:09)
[2017-11-12] MEDS: HYDROGEL DRESSING 90 GM TUBE TP SCH (09:44)
[2017-11-12] MEDS: Z GUARD REMEDY 2 OZ OINT TP SCH (09:45)
[2017-11-12 12:00] VITALS: BP 116/63
[2017-11-12 12:09] LABS: BAND % (MANUAL) 2 % (0.0-5.0); LYMPHOCYTES % (MANUAL) 5 % (16-48); MONOCYTES % (MANUAL) 8 % (0-11.0); NEUTROPHILS % (MANUAL) 82 (42-76); REACTIVE LYMPHOCYTES 3 % (0-0)
[2017-11-12] MEDS: INSULIN ASPART/LISPRO 100 UNIT/ML CARTRIDGE SQ PRN ×2 (12:24→21:23)
[2017-11-12] MEDS: IV NS 0.9% 1,000 ML IV PRN (12:52)
[2017-11-12] MEDS: GLUCERNA SHAKE 237 ML CAN PO SCH ×2 (13:00→17:18)
[2017-11-12 16:00] VITALS: BP 126/71
[2017-11-12] MEDS: HYDROMORPHONE 1 MG/1 ML DISP.SYRIN IV PRN (17:20)
[2017-11-12] MEDS: METOPROLOL SUCCINATE 25 MG TAB.SR.24H PO SCH (18:00)
[2017-11-12 20:00] VITALS: BP 101/62
[2017-11-12] MEDS: CARVEDILOL 3.125 MG TABLET PO SCH (21:00)
--- NOTE | 2017-11-12 21:05 | NUR ---
JANET NOTE COREG WAS ADMINISTERED DUE TO DECREASED BP 101/62, IS AWARE, ANT NURSE IS AWARE Addendum: 11/13/17 at 0658 by FAUSTO PRESTON RN PLS CHANGE THE NOTE COREG WAS NOT ADMINISTERED DUE TO DECREASED BP 101/62, IS AWARE, CHARGE NURSE IS AWARE
[2017-11-12] MEDS: INSULIN GLARGINE, 100 UNIT/ML CARTRIDGE SQ SCH (21:20)
[2017-11-13] VITALS: BP 109/67
[2017-11-13] MEDS: IV NS 0.9% 1,000 ML IV PRN ×2 (02:59→19:05)
[2017-11-13 04:00] VITALS: BP 129/76
[2017-11-13] MEDS: VANCOMYCIN HCL 125 MG/2.5 ML ORAL.SUSP PO SCH ×4 (06:24→23:48)
[2017-11-13 06:55] LABS: BASOPHILS # (AUTO) 0.1 /CMM (0.0-0.2); BASOPHILS % (AUTO) 0.2 % (0.0-2.0); EOSINOPHILS % (AUTO) 0.1 % (0.0-6.0); HEMATOCRIT 28 % (39-51); HEMOGLOBIN 9.5 g/dL (13.5-17.5); LYMPHOCYTES # (AUTO) 1.7 /CMM (0.8-4.8); LYMPHOCYTES % (AUTO) 5.4 % (20.0-44.0); MEAN CORPUSCULAR HGB CONC 34 g/dl (31.0-36.0); MEAN CORPUSCULAR VOLUME 84 fL (80-96); MONOCYTES # (AUTO) 0.7 /CMM (0.1-1.30); MONOCYTES % (AUTO) 2.3 % (2.0-12.0); NEUTROPHILS # (AUTO) 28.8 /CMM (1.8-8.9); RDW COEFFICIENT OF VARIATION 14.4 (11.5-15.0); RED BLOOD CELL COUNT(AUTO) 3.33 MIL/uL (4.5-6.0)
[2017-11-13 07:39] LABS: WHITE BLOOD COUNT (AUTO) 31.3 K/uL (4.3-11.0)
[2017-11-13 07:40] LABS: PLATELET COUNT (AUTO) 51 /CMM (150-450)
[2017-11-13] MEDS: GLUCERNA SHAKE 237 ML CAN PO SCH ×3 (07:54→17:00)
[2017-11-13] MEDS: BLOOD SUGAR DIAGNOSTIC 1 EACH STRIP IN SCH ×4 (07:54→21:11)
[2017-11-13] MEDS: METRONIDAZOLE 500MG/ NS 100ML 500 MG in PREMIX 1 EA IV SCH ×3 (07:54→23:48)
[2017-11-13 08:00] VITALS: BP_SYST 152; BP_DIAS 74; BP_DIAS 79
[2017-11-13] MEDS: BENAZEPRIL HCL 20 MG TABLET PO SCH (09:41)
[2017-11-13] MEDS: ASPIRIN EC 81 MG TABLET.DR PO SCH (09:41)
[2017-11-13] MEDS: TRAMADOL HCL 50 MG TABLET PO PRN ×3 (09:41→23:54)
[2017-11-13] MEDS: ATORVASTATIN 10 MG TABLET PO SCH (09:41)
[2017-11-13] MEDS: LINAGLIPTIN 5 MG TABLET PO SCH (09:41)
[2017-11-13] MEDS: Z GUARD REMEDY 2 OZ OINT TP SCH (09:42)
[2017-11-13] MEDS: HYDROGEL DRESSING 90 GM TUBE TP SCH (09:42)
[2017-11-13] MEDS: CARVEDILOL 3.125 MG TABLET PO SCH ×2 (09:42→21:06)
[2017-11-13] MEDS: DICLOFENAC TOPICAL 100 GM GEL..GM. TP SCH ×4 (09:43→21:16)
[2017-11-13 10:09] LABS: LYMPHOCYTES % (MANUAL) 13 % (16-48); MONOCYTES % (MANUAL) 2 % (0-11.0); NEUTROPHILS % (MANUAL) 85 (42-76)
[2017-11-13 12:00] VITALS: BP 127/72
[2017-11-13] MEDS: INSULIN ASPART/LISPRO 100 UNIT/ML CARTRIDGE SQ PRN ×2 (12:50→21:15)
[2017-11-13 16:00] VITALS: BP 136/81
--- NOTE | 2017-11-13 19:20 | NUR ---
RN NOTES RECEIVED PT ASLEEP ON BED. EASILY AROUSABLE. AOX2 ABLE TO MAKE KNOWN NEEDS AND VERBALIZED FEELINGS. NO ACUTE RESPIRATORY DISTRESS WITH O2 2LPM VIA NC. NSR ON TELE MONITOR. IV SITE ON LFA G 20 RUNNING WITH NS @ 75 ML/HR INTACT AND PATENT. PT IS AFEBRILE. PATIENT REMINDED NURSE TO BE CAREFUL TURNING HIM DUE TO HIS SHOULDER PAIN. ASSURANCE RENDERED. PT IS CLEAN AND DRY. WILL CONTINUE TO MONITOR.
[2017-11-13 20:00] VITALS: BP 126/77
[2017-11-13] MEDS: INSULIN GLARGINE, 100 UNIT/ML CARTRIDGE SQ SCH (21:12)
[2017-11-14] VITALS: BP 151/72
[2017-11-14 04:00] VITALS: BP 137/77
[2017-11-14] MEDS: VANCOMYCIN HCL 125 MG/2.5 ML ORAL.SUSP PO SCH ×3 (05:41→17:50)
[2017-11-14 06:29] LABS: EOSINOPHILS % (AUTO) 0.2 % (0.0-6.0); HEMATOCRIT 29 % (39-51); HEMOGLOBIN 9.1 g/dL (13.5-17.5); LYMPHOCYTES # (AUTO) 2.2 /CMM (0.8-4.8); LYMPHOCYTES % (AUTO) 8.4 % (20.0-44.0); MEAN CORPUSCULAR HGB CONC 32 g/dl (31.0-36.0); MEAN CORPUSCULAR VOLUME 87 fL (80-96); MONOCYTES # (AUTO) 0.1 /CMM (0.1-1.30); MONOCYTES % (AUTO) 0.5 % (2.0-12.0); NEUTROPHILS # (AUTO) 24.1 /CMM (1.8-8.9); NEUTROPHILS % (AUTO) 90.9 % (43.0-81.0); PLATELET COUNT (AUTO) 63 /CMM (150-450); RDW COEFFICIENT OF VARIATION 15.8 (11.5-15.0); RED BLOOD CELL COUNT(AUTO) 3.32 MIL/uL (4.5-6.0); WHITE BLOOD COUNT (AUTO) 26.5 K/uL (4.3-11.0)
--- NOTE | 2017-11-14 06:44 | NUR ---
RN NOTES PATIENT ASLEEP WELL ON BED. BREATHING EVEN AND UNLABORED. CONTINUE WITH O2 2LPM VIA NC TOLERATED WELL. AFEBRILE. VSS. NSR ON TELE MONITOR. C/ O PAIN ON HIS SHOULDER. NO SIGNIFICANT CHANGE OF CONDITION. IS SITE ON LFA WITH ONGOING IVF NS @ 75 ML/HR. NO S./S OF HYPO OR HYPERGLYCEMIA. KEPT PT CLEAN AND DRY. NO BOWEL IN THIS SHIFT. WILL CONTINUE POC. WILL ENDORSED CONTINUITY OF CARE TO AM NURSE.
[2017-11-14] MEDS: BLOOD SUGAR DIAGNOSTIC 1 EACH STRIP IN SCH ×4 (07:52→22:48)
--- NOTE | 2017-11-14 07:55 | NUR ---
RN NOTE RECEIVED PATIENT ASLEEP IN BED. EASILY AROUSABLE TO NAME AND TACTILE STIMULI. ALERT AND ORIENTED X1-2 WITH EPISODES OF CONFUSION. HE IS ABLE TO VERBALIZE NEEDS. BREATHING EVEN AND UNLABORED WITH NO DISTRESS NOTED. ON CONTINUOUS O2 2L VIA NASAL CANULA SATURATING WELL. ON COMPUTATIONAL PHYSICIST SINUS RHYTHM HR OF 92. IV SITE INTACT AND PATENT WITH ONGOING FLUIDS ORDERED. PATIENT REMINDED NURSE TO BE CAREFUL TURNING HIM DUE TO HIS SHOULDER PAIN. ALL SAFETY MEASURES DONE. BED LOW AND LOCKED POSITION. PLACED CALL LIGHT WITHIN REACH. WILL CONTINUE TO MONITOR.
[2017-11-14 08:00] VITALS: BP 144/82
[2017-11-14] MEDS: METRONIDAZOLE 500MG/ NS 100ML 500 MG in PREMIX 1 EA IV SCH ×2 (08:28→15:55)
[2017-11-14] MEDS: GLUCERNA SHAKE 237 ML CAN PO SCH ×3 (08:32→16:06)
[2017-11-14] MEDS: BENAZEPRIL HCL 20 MG TABLET PO SCH (08:33)
[2017-11-14] MEDS: LINAGLIPTIN 5 MG TABLET PO SCH (08:33)
[2017-11-14] MEDS: ASPIRIN EC 81 MG TABLET.DR PO SCH (08:33)
[2017-11-14] MEDS: ATORVASTATIN 10 MG TABLET PO SCH (08:33)
[2017-11-14] MEDS: HYDROGEL DRESSING 90 GM TUBE TP SCH (08:38)
[2017-11-14] MEDS: CARVEDILOL 3.125 MG TABLET PO SCH ×2 (08:38→20:47)
[2017-11-14] MEDS: Z GUARD REMEDY 2 OZ OINT TP SCH (08:39)
[2017-11-14] MEDS: DICLOFENAC TOPICAL 100 GM GEL..GM. TP SCH ×4 (08:39→20:48)
[2017-11-14] MEDS: IV NS 0.9% 1,000 ML IV PRN ×2 (09:00→23:07)
[2017-11-14 10:11] LABS: LYMPHOCYTES % (MANUAL) 7 % (16-48); MONOCYTES % (MANUAL) 5 % (0-11.0); NEUTROPHILS % (MANUAL) 88 (42-76)
[2017-11-14] MEDS: HYDROMORPHONE 1 MG/1 ML DISP.SYRIN IV PRN ×2 (10:46→20:48)
[2017-11-14] MEDS: INSULIN ASPART/LISPRO 100 UNIT/ML CARTRIDGE SQ PRN ×3 (11:32→22:51)
[2017-11-14 12:00] VITALS: BP 120/67
[2017-11-14 16:00] VITALS: BP 102/55
--- NOTE | 2017-11-14 19:07 | NUR ---
RN NOTE PATIENT REMAINED STABLE THROUGHOUT SHIFT. NO ACUTE CHANGES OR DISTRESS NOTED. WILL ENDORSE TO NEXT SHIFT TO CONTINUE TO MONITOR CONTINUITY OF CARE.
[2017-11-14 20:00] VITALS: BP 144/83
--- NOTE | 2017-11-14 21:00 | NUR ---
[facility] RN NOTE RECEIVED PATIENT BEDSIDE REPORT FROM AM NURSE. PATIENT AWAKE IN BED, ALERT AND ORIENTED X1-2 WITH EPISODES OF CONFUSION. HE IS ABLE TO VERBALIZE NEEDS. BREATHING EVEN AND UNLABORED WITH NO DISTRESS NOTED AT THIS TIME. ON CONTINUOUS O2 2L VIA NASAL CANULA SATURATING WELL.IV SITE INTACT AND PATENT WITH ONGOING FLUIDS ORDERED. ALL SAFETY MEASURES ARE IMPLEMENTED, BED LOW AND LOCKED POSITION. PLACED CALL LIGHT WITHIN REACH. WILL CONTINUE TO MONITOR.
[2017-11-14] MEDS: INSULIN GLARGINE, 100 UNIT/ML CARTRIDGE SQ SCH (22:49)
[2017-11-14] MEDS: TRAMADOL HCL 50 MG TABLET PO PRN (22:56)
[2017-11-15] MEDS: VANCOMYCIN HCL 125 MG/2.5 ML ORAL.SUSP PO SCH ×4 (00:32→17:52)
[2017-11-15] MEDS: METRONIDAZOLE 500MG/ NS 100ML 500 MG in PREMIX 1 EA IV SCH ×3 (00:33→17:14)
[2017-11-15 04:00] VITALS: BP 106/56
--- NOTE | 2017-11-15 06:50 | NUR ---
RN CLOSING NOTE PATIENT REMAINED STABLE THROUGHOUT MY SHIFT. NO ACUTE CHANGES OR DISTRESS NOTED DURING MY SHIFT. PATIENT IS RESTING COMFORTABLY IN BED , IV LINE IS PATIENT, INTACT WITH IV FLUIDS RUNNING AT 75ML/HR. ALL SAFETY MEASURES ARE IMPLEMENTED, BED IN LOW, LOCKED POSITION, CALL LIGHT IN REACH. CONDOM CATHETER IN PLACE . AFTER PLACING LEORA CATH. PATIENT WASN'T ABLE TO URINATE AND URINE WASN'T COLLECTED FOR LAB TESTING. WILL ENDORSE TO AM NURSE TO CONTINUE PATIENT CARE AND MONITOR PATIENT.
[2017-11-15 08:00] VITALS: BP 121/70
--- NOTE | 2017-11-15 08:00 | NUR ---
RN NOTES RECEIVED PATIENT IN BED. ALERT ORIENTED X1-2. SPEECH IS UNCLEAR BUT ABLE TO MAKE NEEDS KNOWN ON SIMPLE WORDS. ON 2L O2 VIA NC TOLERATING WELL. SATURATION ON 93%. NOT ON ANY FORM OF DISTRESS OR DISCOMFORT AT THIS TIME. RESPIRATIONS EVEN AND UNLABORED. DENIES PAIN. LFA G 20 IVC, WITH NS RUNNING AT 75 CC/HR, PATENT AND INTACT. KEPT COMFORTABLE, SAFETY MEASURES IN PLACE, BED IN LOW LOCKED POSITION, SIDE RAILS UP X2, CALL LIGHT WITHIN EASY REACH. WILL CONTINUE TO MONITOR.
[2017-11-15] MEDS: BLOOD SUGAR DIAGNOSTIC 1 EACH STRIP IN SCH ×4 (08:13→21:02)
[2017-11-15] MEDS: GLUCERNA SHAKE 237 ML CAN PO SCH ×3 (08:14→17:44)
[2017-11-15 08:40] LABS: HEMATOCRIT 27 % (39-51); HEMOGLOBIN 8.7 g/dL (13.5-17.5); MEAN CORPUSCULAR HGB CONC 32 g/dl (31.0-36.0); MEAN CORPUSCULAR VOLUME 85 fL (80-96); RED BLOOD CELL COUNT(AUTO) 3.21 MIL/uL (4.5-6.0); WHITE BLOOD COUNT (AUTO) 36.4 K/uL (4.3-11.0)
[2017-11-15 08:41] LABS: EOSINOPHILS % (AUTO) 1.3 % (0.0-6.0); LYMPHOCYTES # (AUTO) 1.7 /CMM (0.8-4.8); LYMPHOCYTES % (AUTO) 4.7 % (20.0-44.0); MONOCYTES # (AUTO) 0.3 /CMM (0.1-1.30); MONOCYTES % (AUTO) 0.8 % (2.0-12.0); NEUTROPHILS % (AUTO) 93.2 % (43.0-81.0); PLATELET COUNT (AUTO) 64 /CMM (150-450); RDW COEFFICIENT OF VARIATION 15.5 (11.5-15.0)
[2017-11-15] MEDS: ASPIRIN EC 81 MG TABLET.DR PO SCH (09:06)
[2017-11-15] MEDS: ATORVASTATIN 10 MG TABLET PO SCH (09:06)
[2017-11-15] MEDS: BENAZEPRIL HCL 20 MG TABLET PO SCH (09:06)
[2017-11-15] MEDS: LINAGLIPTIN 5 MG TABLET PO SCH (09:06)
[2017-11-15] MEDS: CARVEDILOL 3.125 MG TABLET PO SCH ×2 (09:07→20:43)
[2017-11-15] MEDS: HYDROGEL DRESSING 90 GM TUBE TP PRN (09:12)
[2017-11-15] MEDS: Z GUARD REMEDY 2 OZ OINT TP SCH (09:13)
[2017-11-15] MEDS: DICLOFENAC TOPICAL 100 GM GEL..GM. TP SCH ×4 (09:13→20:47)
[2017-11-15] MEDS: HYDROGEL DRESSING 90 GM TUBE TP SCH (09:17)
[2017-11-15 12:00] VITALS: BP 121/70
[2017-11-15 12:27] LABS: BAND % (MANUAL) 2 % (0.0-5.0); LYMPHOCYTES % (MANUAL) 9 % (16-48); MONOCYTES % (MANUAL) 6 % (0-11.0); NEUTROPHILS % (MANUAL) 83 (42-76)
[2017-11-15] MEDS: INSULIN ASPART/LISPRO 100 UNIT/ML CARTRIDGE SQ PRN ×3 (12:40→21:10)
[2017-11-15 16:00] VITALS: BP 168/91
[2017-11-15] MEDS: IV NS 0.9% 1,000 ML IV PRN (17:14)
--- NOTE | 2017-11-15 19:52 | NUR ---
RN NOTES ENDORSED FOR CONTINUITY OF CARE, NO ACUTE CHANGES FOR THE ENTIRE SHIFT. ALL NURSING NEEDS ANTICIPATED AND MET. SAFETY MEASURES IN PLACE ALL THE TIME. CALL LIGHT WITHIN REACH. BED LOW AND LOCKED. ENDORSED COLLECTION OF URINE FOR 24 HR URINE PROTEIN TO TO FAILURE TO COLLECT DURING THE SHIFT.
--- NOTE | 2017-11-15 19:59 | NUR ---
RN INITIAL MS NOTE RECEIVED PT AOX1-2, ON 2L NC, WELL [facility], SPEECH NOT CLEAR, W/ EPISODE OF CONFUSION, DENIES ANY PAIN. W/LFA#20G-NS@75ML/HR RUNNING ,WELL [facility], NO SIGN OF INFILTRATION, APPEARS CLEAN, CONT ON 24HR URINE PROTEIN TEST COLLECTION, ALL NEEDS ATTENDED,SAFETY MEASURES IN PLACE, WILL CONT TO MONITOR, CL W/R.
[2017-11-15 20:00] VITALS: BP 132/70
[2017-11-15] MEDS: INSULIN GLARGINE, 100 UNIT/ML CARTRIDGE SQ SCH (21:03)
[2017-11-16 04:00] VITALS: BP 110/69
[2017-11-16] MEDS: VANCOMYCIN HCL 125 MG/2.5 ML ORAL.SUSP PO SCH ×3 (04:04→11:38)
[2017-11-16] MEDS: METRONIDAZOLE 500MG/ NS 100ML 500 MG in PREMIX 1 EA IV SCH ×2 (04:04→08:59)
[2017-11-16] MEDS: INSULIN ASPART/LISPRO 100 UNIT/ML CARTRIDGE SQ PRN ×2 (06:13→11:34)
[2017-11-16] MEDS: BLOOD SUGAR DIAGNOSTIC 1 EACH STRIP IN SCH ×2 (06:14→11:33)
[2017-11-16] MEDS: IV NS 0.9% 1,000 ML IV PRN (06:52)
--- NOTE | 2017-11-16 07:20 | NUR ---
MS RN OPENING NOTE PATIENT IN BED. SLEEPING, EASILY AROUSED WITH VERBAL STIMULI, ORIENTED X2. SPEECH IS UNCLEAR. ON 2L O2 VIA NC TOLERATING WELL. IN NO APPARENT DISTRESS OR DISCOMFORT AT THIS TIME. RESPIRATIONS EVEN AND UNLABORED. NO FEVER PRESENT, RIGHT SHOULDER PAIN, CONTROLLED WITH PAIN MEDICATION. LEFT FOREARM IVC 20G, PATENT AND INTACT. KEPT CLEAN AND COMFORTABLE, ALL NEEDS ATTENDED. SAFETY MEASURES IN PLACE, BED IN LOW LOCKED POSITION, SIDE RAILS UP X3, CALL LIGHT WITHIN EASY REACH. WILL CONTINUE TO MONITOR.
[2017-11-16 08:00] VITALS: BP 102/61
[2017-11-16 08:09] LABS: IMMUNOGLOBULIN A, SERUM 349 mg/dL (61-437); IMMUNOGLOBULIN G, SERUM 1238 mg/dL (700-1600); IMMUNOGLOBULIN M, SERUM 142 mg/dL (15-143)
[2017-11-16 08:09] LABS: IMMUNOGLOBULIN A, SERUM 354 mg/dL (61-437); IMMUNOGLOBULIN G, SERUM 1270 mg/dL (700-1600); IMMUNOGLOBULIN M, SERUM 139 mg/dL (15-143)
[2017-11-16 08:35] LABS: HEMATOCRIT 29 % (39-51); HEMOGLOBIN 9.2 g/dL (13.5-17.5); RED BLOOD CELL COUNT(AUTO) 3.37 MIL/uL (4.5-6.0); WHITE BLOOD COUNT (AUTO) 38.4 K/uL (4.3-11.0)
[2017-11-16 08:36] LABS: BASOPHILS % (AUTO) 0.1 % (0.0-2.0); LYMPHOCYTES # (AUTO) 2.6 /CMM (0.8-4.8); LYMPHOCYTES % (AUTO) 6.7 % (20.0-44.0); MEAN CORPUSCULAR HGB CONC 32 g/dl (31.0-36.0); MEAN CORPUSCULAR VOLUME 86 fL (80-96); MONOCYTES # (AUTO) 1.9 /CMM (0.1-1.30); MONOCYTES % (AUTO) 4.9 % (2.0-12.0); NEUTROPHILS # (AUTO) 33.9 /CMM (1.8-8.9); NEUTROPHILS % (AUTO) 88.3 % (43.0-81.0); PLATELET COUNT (AUTO) 67 /CMM (150-450); RDW COEFFICIENT OF VARIATION 15.3 (11.5-15.0)
[2017-11-16 08:37] LABS: BASOPHILS # (AUTO) 0.1 /CMM (0.0-0.2)
[2017-11-16] MEDS: BENAZEPRIL HCL 20 MG TABLET PO SCH (09:00)
[2017-11-16] MEDS: CARVEDILOL 3.125 MG TABLET PO SCH (09:11)
[2017-11-16] MEDS: ATORVASTATIN 10 MG TABLET PO SCH (09:11)
[2017-11-16] MEDS: ASPIRIN EC 81 MG TABLET.DR PO SCH (09:12)
[2017-11-16] MEDS: GLUCERNA SHAKE 237 ML CAN PO SCH ×2 (09:12→11:39)
[2017-11-16] MEDS: LINAGLIPTIN 5 MG TABLET PO SCH (09:12)
[2017-11-16] MEDS: DICLOFENAC TOPICAL 100 GM GEL..GM. TP SCH ×2 (09:20→12:48)
[2017-11-16] MEDS: Z GUARD REMEDY 2 OZ OINT TP SCH (09:21)
[2017-11-16] MEDS: HYDROGEL DRESSING 90 GM TUBE TP SCH (09:21)
[2017-11-16] MEDS: HYDROGEL DRESSING 90 GM TUBE TP PRN (09:21)
[2017-11-16 10:21] LABS: LYMPHOCYTES % (MANUAL) 5 % (16-48); MONOCYTES % (MANUAL) 7 % (0-11.0); NEUTROPHILS % (MANUAL) 88 (42-76)
[2017-11-16 12:00] VITALS: BP 102/61
--- NOTE | 2017-11-16 12:00 | NUR ---
PATIENT HAS LEFT HAND 2+ PITTING EDEMA. IV SITE ON LEFT FOREARM NO INFILTRATION NOTED AT OR AROUND IV SITE. DISCONTINUED CURRENT IVC. HAND ELEVATED ON THE PILLOW. NEW IV PLACED ON RIGHT HAND, 20G. PATENT AND INTACT AT THIS TIME. WILL CONTINUE TO MONITOR.
--- NOTE | 2017-11-16 15:30 | NUR ---
MS RETAIL SALES MERCHANDISER NOTE RECEIVED ORDER FOR DISCHARGE. PATIENT IS STABLE, VITAL SIGNS ARE STABLE. BP:132/59, HR: 69, SPO2 96%, TEMP: 97.8. NO ACUTE CHANGES PRESENT IN PATIENT'S CONDITION. ALERT ORIENTED X1-2, OCCASIONAL EPISODES OF CONFUSION AND FORGETFULNESS. ON 2L O2 VIA NC, TOLERATING WELL. RESPIRATIONS EVEN AND UNLABORED. DENIES SOB. EXITCARE PREPARED. DISCHARGE INSTRUCTIONS WAS DISCUSSED WITH THE PATIENT AND THE FAMILY AT BEDSIDE. NO NEW MEDICATIONS ORDERED AT THIS TIME. PATIENT WAS CLEANED, SKIN WAS CHECKED, PICTURES TAKEN PLACED IN CHART. BELONGINGS CHECKED WITH TWO NURSES COSIGNED. DISCHARGE PAPERWORK COSIGNED WITH MASON LARKIN DUE TO PATIENT'S ALTERED LOC. ALL PAPERS COPIED PLACED IN CHART. IV CANAL REMOVED, TIP INTACT. ID BAND REMOVED. PATIENT LEFT THE UNIT ON A GURNEY VIA AMBULANCE, ACCOMPANIED BY AMBULANCE TEAM AT 1530.
[2017-11-22 16:13] LABS: *IFEU ALPHA-2-GLOBULIN 10.7 % (.)
[2017-12-02] MEDS ORDERED: ERGOCALCIFEROL (VITAMIN D 2) 50,000 UNIT CAPSULE PO SCH (09:00)
== END 2017-11-16 15:45 | DRG 871 ==
LOC: ER 10:50 → TELE 13:39 → MED 11-07 09:38 → TELE-TD 11-11 20:24 → MEDSG1 11-14 08:47
PROVIDERS: ADMIT Internal Medicine; ATTEND Internal Medicine
DX: A41.9 Sepsis, unspecified organism (principal); J18.9 Pneumonia, unspecified organism; C91.40 Hairy cell leukemia not having achieved remission; J91.8 Pleural effusion in other conditions classified elsewhere; N17.9 Acute kidney failure, unspecified; C79.51 Secondary malignant neoplasm of bone; L89.150 Pressure ulcer of sacral region, unstageable; E11.22 Type 2 diabetes mellitus with diabetic chronic kidney disease; E11.65 Type 2 diabetes mellitus with hyperglycemia; I13.10 Hypertensive heart and chronic kidney disease without heart failure, with stage 1 through stage 4 chronic kidney disease, or unspecified chronic kidney disease; N18.3 Chronic kidney disease, stage 3 (moderate); H90.5 Unspecified sensorineural hearing loss; G30.9 Alzheimer's disease, unspecified; F02.80 Dementia in other diseases classified elsewhere, unspecified severity, without behavioral disturbance, psychotic disturbance, mood disturbance, and anxiety; Z88.0 Allergy status to penicillin; F17.210 Nicotine dependence, cigarettes, uncomplicated; I25.10 Atherosclerotic heart disease of native coronary artery without angina pectoris; R62.7 Adult failure to thrive; K57.50 Diverticulosis of both small and large intestine without perforation or abscess without bleeding; M19.90 Unspecified osteoarthritis, unspecified site; D69.6 Thrombocytopenia, unspecified; D63.8 Anemia in other chronic diseases classified elsewhere; R09.02 Hypoxemia
CPT/HCPCS: 36415; 71045-TC; 77075-TC; 80048-TC; 80053-TC; 80076-TC; 81000-TC; 82378; 82595; 82728-TC; 82784; 82962-TC; 83540-TC; 83605-TC; 83615-TC; 83880; 84156; 84166; 84484-TC; 84550-TC; 85025-TC; 85045-TC; 85652-TC; 85730-TC; 86334; 86335; 86850-TC; 87040-TC; 87081-TC; 87086-TC; 87806; 92521; 93307-TC; 97110-TC; 97112-TC; 97116-TC; 97530-TC; 97535-TC; A4216; A4349; A4606; A6248; A6402; A6403; A6407; J0456; J0696; J1170; J1815; J2543; J3370; J3490; J7030; J7060; Z7610

== ENCOUNTER 2017-11-28 11:07 | Inpatient (IN) | payer MEDICARE, MEDICAID ==
[~2017-11-28] VITALS: Ht 180.3 cm; Wt 74.8 kg
[~2017-11-28 11:07] MED LIST: ASPI-1152 PO; ATOR10TA PO; BENA20TA9 PO; CHOL100040 PO; DIPH1TAB PO; LINA5TAB PO; METO-356 PO
[2017-11-28] MEDS ORDERED: IV NS 0.9% 1,000 ML BAG IV ONE (11:30)
--- NOTE | 2017-11-28 11:41 | NUR ---
IN STARTED ON RIGHT FOREARM. LABS DRAWN.
--- NOTE | 2017-11-28 11:45 | NUR ---
PT TO RADIOLOGY FOR HEAD CT SCAN VIA [facility].
[2017-11-28 11:49] LABS: BASOPHILS # (AUTO) 0.1 /CMM (0.0-0.2); BASOPHILS % (AUTO) 0.2 % (0.0-2.0); HEMATOCRIT 21 % (39-51); LYMPHOCYTES % (AUTO) 3.8 % (20.0-44.0); MEAN CORPUSCULAR HGB CONC 33 g/dl (31.0-36.0); MEAN CORPUSCULAR VOLUME 83 fL (80-96); MONOCYTES # (AUTO) 0.6 /CMM (0.1-1.30); MONOCYTES % (AUTO) 1.2 % (2.0-12.0); NEUTROPHILS # (AUTO) 48.9 /CMM (1.8-8.9); NEUTROPHILS % (AUTO) 94.8 % (43.0-81.0); PLATELET COUNT (AUTO) 80 /CMM (150-450); RDW COEFFICIENT OF VARIATION 15.4 (11.5-15.0)
[2017-11-28 11:54] LABS: HEMOGLOBIN 6.9 g/dL (13.5-17.5); WHITE BLOOD COUNT (AUTO) 51.6 K/uL (4.3-11.0)
[2017-11-28 11:58] LABS: CALCIUM, SERUM 8.2 mg/dL (8.5-10.1); CARBON DIOXIDE 27 mmol/L (21-32); CHLORIDE 108 mmol/L (98-107); CREATININE 1.5 mg/dL (0.6-1.3); GLUCOSE 292 mg/dL (74-106); POTASSIUM 4.4 mmol/L (3.5-5.1); SODIUM SERUM 144 mmol/L (136-145); UREA NITROGEN, BLOOD 40 mg/dL (7-18)
[2017-11-28 12:02] LABS: INR 1.11 (0.85-1.15)
[2017-11-28 12:04] LABS: ALANINE AMINOTRANSFERASE 85 U/L (12-78); ALKALINE PHOSPHATASE 74 U/L (46-116); ASPARTATE AMINOTRANSFERASE 106 U/L (15-37); BILIRUBIN,DIRECT 0.1 mg/dL (0.0-0.2); BILIRUBIN,TOTAL 0.3 mg/dL (0.2-1.0); TOTAL PROTEIN, SERUM 5.9 g/dL (6.4-8.2)
[2017-11-28 12:05] LABS: ALBUMIN 1.2 g/dL (3.4-5.0)
[2017-11-28 12:06] LABS: TROPONIN I < 0.017 ng/mL (0.00-0.056)
[2017-11-28 12:27] LABS: APPEARANCE,URINE Cloudy (CLEAR); BILIRUBIN,URINE Negative (NEGATIVE); BLOOD, URINE Large Ery/uL (NEGATIVE); KETONES,URINE Negative (NEGATIVE); LEUKOCYTE ESTERASE ,URINE Small (NEGATIVE); NITRITE, URINE Negative (NEGATIVE); PH,URINE 5.5 (5.0-8.0); PROTEIN,URINE 100 mg/dl (NEGATIVE); UGLUCOSE Negative (NEGATIVE); UROBILINOGEN,URINE 0.2 EU/dL (0.2)
[2017-11-28 12:28] LABS: COLOR,URINE Dark Yellow (YELLOW)
[2017-11-28] MEDS ORDERED: PIPERACILLIN /TAZOBACTAM 3.375 G in IV D5W 50 ML IV ONE (12:30)
[2017-11-28 12:32] LABS: BACTERIA,URINE Many /HPF (None Seen); SQUAMOUS EPITHELIAL CELL,UR Moderate /HPF (None Seen); WBC,URINE TOO NUMEROUS TO COUN /HPF (0-3)
--- NOTE | 2017-11-28 12:55 | NUR ---
CALLED THE OFFICE OF DR ROSINA ZAMAN AND A PAGE WAS SENT OUT .
--- NOTE | 2017-11-28 13:06 | NUR ---
PT IS ASSIGNED TO [facility]#; [id number], Dx: LEUKOCYTOSIS, SEVERE ANEMIA, AND ACCEPTING MD: ROSINA ZAMAN
[2017-11-28 13:25] LABS: BAND % (MANUAL) 3 % (0.0-5.0); BLASTS, MANUAL % 2 % (0-0); LYMPHOCYTES % (MANUAL) 3 % (16-48); MONOCYTES % (MANUAL) 3 % (0-11.0); NEUTROPHILS % (MANUAL) 89 (42-76)
[2017-11-28] MEDS ORDERED: ALBU1.257 IH (13:27)
[2017-11-28] MEDS ORDERED: CARV3.122 PO (13:27)
[2017-11-28] MEDS ORDERED: ZINC220C6 PO (13:27)
[2017-11-28] MEDS ORDERED: AMIN887L PO (13:27)
[2017-11-28] MEDS ORDERED: ASPI-1169 PO (13:27)
[2017-11-28] MEDS ORDERED: TRAM50TA2 PO ×2 (13:27)
[2017-11-28] MEDS ORDERED: DICL100G16 TP (13:27)
[2017-11-28] MEDS ORDERED: INSU100V7 SQ (13:27)
[2017-11-28] MEDS ORDERED: ERGO500040 PO (13:27)
[2017-11-28] MEDS ORDERED: BLOO-668 IN (13:27)
[2017-11-28] MEDS ORDERED: INSU100V11 SQ (13:27)
--- NOTE | 2017-11-28 13:32 | NUR ---
UPDATE: PT IS ASSIGNED TO # 306-2
--- NOTE | 2017-11-28 13:50 | NUR ---
REPORT GIVEN TO EFRAIN GONZALES. PT AWAITING TRANSFER TO FLOOR.
--- NOTE | 2017-11-28 14:30 | NUR ---
ADMISSION NOTE PT ADMITTED. RECEIVED FROM ER. PT CAME FROM [facility]. CONFUSED, A/OX1. ASPIRATION PRECAUTIONS IN PLACE. AWAITING ADMISSION ORDERS FROM DR. ZAMAN. WILL CONTINUE TO MONITOR.
[2017-11-28 16:00] VITALS: BP 114/75
--- NOTE | 2017-11-28 19:21 | NUR ---
RN OPENING NOTES RECEIVED PT. PT STABLE AND RESTING IN BED. NO S/S OF RESP DISTRESS OR SOB. NO C/O PAIN. WILL CONTINUE TO MONITOR.
--- NOTE | 2017-11-28 19:30 | NUR ---
RN OPENING NOTES RECEIVED REPORT FROM DAYSHIFT RN YASIR. FOUND Pt AWAKE, RESTING IN BED. Pt IS A/OX1, ALERT TO NAME ONLY, BUT IS VERBAL AND CAN MAKE NEEDS KNOWN. NO S/S OF ACUTE DISTRESS OR SOB NOTED. ON TELE MONITOR, READING ST 108. IV ACCESS ON RFA #20G. SAFETY MEASURES IN PLACE. BED LOW, LOCKED, HOB ELEVATED, SIDE RAILS UP, CALL LIGHT AND BEDSIDE TABLE WITHIN REACH. WILL CONTINUE TO MONITOR Pt THROUGHOUT THE NIGHT FOR SAFETY.
[2017-11-28 20:00] VITALS: BP 125/68
[2017-11-28 20:31] LABS: HEMATOCRIT 23 % (39-51); LYMPHOCYTES # (AUTO) 3.2 /CMM (0.8-4.8); LYMPHOCYTES % (AUTO) 5.7 % (20.0-44.0); MEAN CORPUSCULAR HGB CONC 31 g/dl (31.0-36.0); MEAN CORPUSCULAR VOLUME 87 fL (80-96); MONOCYTES # (AUTO) 0.1 /CMM (0.1-1.30); MONOCYTES % (AUTO) 0.3 % (2.0-12.0); NEUTROPHILS # (AUTO) 53.3 /CMM (1.8-8.9); PLATELET COUNT (AUTO) 85 /CMM (150-450); RDW COEFFICIENT OF VARIATION 16.1 (11.5-15.0); RED BLOOD CELL COUNT(AUTO) 2.59 MIL/uL (4.5-6.0)
[2017-11-28 20:44] LABS: WHITE BLOOD COUNT (AUTO) 56.7 K/uL (4.3-11.0)
[2017-11-28 20:49] LABS: BAND % (MANUAL) 2 % (0.0-5.0); LYMPHOCYTES % (MANUAL) 4 % (16-48); MONOCYTES % (MANUAL) 2 % (0-11.0); NEUTROPHILS % (MANUAL) 92 (42-76)
--- NOTE | 2017-11-28 20:51 | NUR ---
CRITICAL LAB VALUE: WBC 56.7
--- NOTE | 2017-11-28 20:53 | NUR ---
RN NOTES CALLED DR. PAYNE'S OFFICE TO INFORM THE MD OF THE Pt's CRITICAL LAB VALUE: WBC 56.7 (TRENDING UP FROM 51.6)
--- NOTE | 2017-11-28 20:54 | NUR ---
DR. PAYNE's OFFICE: [phone]
[2017-11-28 23:32] VITALS: BP 133/73
--- NOTE | 2017-11-28 23:35 | NUR ---
RN NOTES STARTED Pt ON 1ST UNIT OF PRBC. BASELINE VS: BP 125/68; HR 108, R 24, T 98.6, O2 93%.
[2017-11-28 23:45] VITALS: BP 105/60
[2017-11-29] VITALS (18 sets, daily range): BP systolic 99–139; BP diastolic 52–89
--- NOTE | 2017-11-29 | NUR ---
RN NOTES SPOKE WITH DR. PAYNE ON THE PHONE NOTIFIED HER ABOUT THE CRITICAL LAB VALUE FOR Pt. RECEIVED VERBAL PHONE ORDER FOR BONE MARROW BIOPSY ON 11/29/17 AT 7AM. AND TO HAVE BONE MARROW BIOPSY KIT READY AT BEDSIDE: (2) BOTTLES OF FORMALIN, (1) VIAL LIDOCAINE 1%- 50cc, (2) STERILE GLOVES SIZE 7.5, (2) GREEN TOP TEST TUBES WITH HEPARIN, (2) 10cc SYRINGES - WITH NO NEEDLES, & HANDFUL OF STERILE 4X4.
--- NOTE | 2017-11-29 00:30 | NUR ---
RN NOTES BLOOD TRANSFUSION HAS BEEN RUNNING FOR 1HR, NO ADVERSE REACTION NOTED OR STATED BY Pt. VS STABLE.
--- NOTE | 2017-11-29 00:45 | NUR ---
Pt's SISTER ANTOINETTE DOAN SPOKE WITH ANTOINETTE ON THE PHONE, RECEIVED VERBAL PHONE CONSENT FOR THE BONE MARROW BIOPSY THAT DR. PAYNE ORDERED FOR 11/29/17 AT 7AM. JANET LECHUGA THE 2ND RN.
--- NOTE | 2017-11-29 03:07 | NUR ---
RN NOTES FINISHED 1ST UN OF PRBC. Pt TOLERATED WELL. NO ADVERSE REACTION NOTED. VS STABLE.
[2017-11-29] MEDS ORDERED: LIDOCAINE 1% INJ 50 ML MDV IJ ONE (06:30)
[2017-11-29 06:33] LABS: BASOPHILS # (AUTO) 0.1 /CMM (0.0-0.2); BASOPHILS % (AUTO) 0.1 % (0.0-2.0); HEMATOCRIT 23 % (39-51); HEMOGLOBIN 7.5 g/dL (13.5-17.5); LYMPHOCYTES # (AUTO) 2.6 /CMM (0.8-4.8); LYMPHOCYTES % (AUTO) 6.2 % (20.0-44.0); MEAN CORPUSCULAR HGB CONC 32 g/dl (31.0-36.0); MEAN CORPUSCULAR VOLUME 87 fL (80-96); MONOCYTES # (AUTO) 0.2 /CMM (0.1-1.30); MONOCYTES % (AUTO) 0.4 % (2.0-12.0); NEUTROPHILS # (AUTO) 38.9 /CMM (1.8-8.9); NEUTROPHILS % (AUTO) 93.3 % (43.0-81.0); PLATELET COUNT (AUTO) 72 /CMM (150-450); RDW COEFFICIENT OF VARIATION 15.9 (11.5-15.0); RED BLOOD CELL COUNT(AUTO) 2.68 MIL/uL (4.5-6.0)
[2017-11-29 06:46] LABS: WHITE BLOOD COUNT (AUTO) 41.7 K/uL (4.3-11.0)
--- NOTE | 2017-11-29 07:00 | NUR ---
RN CLOSING NOTES NO SIGNIFICANT CHANGES IN Pt's CONDITION. NO S/S OF ACUTE DISTRESS OR SOB NOTED DURING THE NIGHT. ALL ORDERS CARRIED OUT. TELE READING SR/ST 104. SAFETY MEASURES IN PLACE. BED LOW, LOCKED, HOB ELEVATED, SIDE RAILS UP, CALL LIGHT AND BEDSIDE TABLE WITHIN REACH. WILL ENDORSE TO DAYSHIFT RN FOR Pt's MOISES.
--- NOTE | 2017-11-29 07:00 | NUR ---
PHOTOGRAMMETRY AIRPLANE PILOT OPENING NOTES. PT RECEIVED ALERT TO SELF BUT ABLE TO MAKE NEEDS KNOWN, PT WITH O2 VIA NC AT 3LPM WITHOUT DISTRESS, AUSCULTATED WITH UPPER AIRWAY RHONCHI AND DIMINISHED LOWER LOBES. PT DENIES PAIN AT THIS TIME. PT WITH IVC AT L WRIST INTACT AND OPERATIONAL. PT BED IN LOWEST LOCKED POSITION WITH HANDRAILSX2 AND CALL MUELLER WITHIN REACH. PT BRIEFED ON TODAY'S POC AND IS WITHOUT CONCERN OR COMPLAINT.
--- NOTE | 2017-11-29 07:07 | NUR ---
RN NOTES CALLED PHARMACY TO BRING UP LIDOCAINE 1%; SAID THEY WILL BRING IT UP CHRISTIE.
[2017-11-29 08:37] LABS: LYMPHOCYTES % (MANUAL) 9 % (16-48); MONOCYTES % (MANUAL) 2 % (0-11.0); NEUTROPHILS % (MANUAL) 89 (42-76)
[2017-11-29] MEDS ORDERED: MEROPENEM 500 MG in IV NS 0.9% 50 ML IV SCH (11:30)
[2017-11-29] MEDS ORDERED: ALBUTEROL HALF STRENGTH 1.25 MG/3 ML VIAL.NEB IH PRN (11:30)
[2017-11-29] MEDS ORDERED: DEXTROSE 50%-WATER 50 ML DISP.SYRIN IV PRN (11:30)
--- NOTE | 2017-11-29 12:00 | NUR ---
HEAD GOLF PROFESSIONAL. CONFIRMED MEDS WITH MD ZAMAN.
[2017-11-29] MEDS: BLOOD SUGAR DIAGNOSTIC 1 EACH STRIP IN SCH ×3 (12:24→21:57)
[2017-11-29] MEDS: MEROPENEM 1 G in IV NS 0.9% 100 ML IV SCH (12:35)
--- NOTE | 2017-11-29 14:30 | NUR ---
GENERAL MANAGER NOTES. RBC TRANS COMMENCED.
--- NOTE | 2017-11-29 15:02 | NUR ---
READY MIX TRUCK DRIVER. INSULIN NOW ON FLOOR. WILL RECHECK BGL AND ADMIN PER RX.
[2017-11-29] MEDS: INSULIN ASPART/LISPRO 100 UNIT/ML CARTRIDGE SQ PRN ×3 (15:26→22:21)
--- NOTE | 2017-11-29 17:16 | NUR ---
MD ZAMAN CONTACTED R/T SR.TACH CHANGE TO A.FIB. AWAITING ORDERS.
[2017-11-29] MEDS: CARVEDILOL 3.125 MG TABLET PO SCH (18:00)
--- NOTE | 2017-11-29 18:32 | NUR ---
FISHING HAND CLOSING NOTES. PT REMAINS ALERT TO SELF AND ABLE TO MAKE NEEDS KNOWN. PT WITH O2 VIA NC AT 3LPM WITHOUT DISTRESS, UPPER AIRWAY RHONCHI REMAINS RESENT WITH DIMINISHED LOWER LOBES. PRN WITH RT Q4. PT DENIES PAIN AT THIS TIME. PT WITH AFIB, 2100 MEDS MOVED PER MD ZAMAN TO 1800 CONT TO MONITOR WITH TELE. PT WITH IVC AT R WRIST INTACT AND SL. PT BED IN LOWEST LOCKED POSITION WITH HANDRAILSX2 AND CALL MUELLER WITHIN REACH. ALL DAY NURSE DUTIES ATTENDED TO AND PT IS WITHOUT CONCERN OR COMPLAINT. WILL ENDORSE TO NIGHT NURSE AT BEDSIDE FOR MOISES.
[2017-11-29 18:59] LABS: BASOPHILS # (AUTO) 0.1 /CMM (0.0-0.2); BASOPHILS % (AUTO) 0.2 % (0.0-2.0); HEMOGLOBIN 9.4 g/dL (13.5-17.5)
[2017-11-29 19:03] LABS: EOSINOPHILS % (AUTO) 0.1 % (0.0-6.0); HEMATOCRIT 28 % (39-51); LYMPHOCYTES # (AUTO) 2.3 /CMM (0.8-4.8); LYMPHOCYTES % (AUTO) 5.5 % (20.0-44.0); MEAN CORPUSCULAR HGB CONC 34 g/dl (31.0-36.0); MEAN CORPUSCULAR VOLUME 86 fL (80-96); MONOCYTES # (AUTO) 0.6 /CMM (0.1-1.30); MONOCYTES % (AUTO) 1.5 % (2.0-12.0); NEUTROPHILS # (AUTO) 38.7 /CMM (1.8-8.9); NEUTROPHILS % (AUTO) 92.7 % (43.0-81.0); PLATELET COUNT (AUTO) 74 /CMM (150-450); RDW COEFFICIENT OF VARIATION 14.5 (11.5-15.0); RED BLOOD CELL COUNT(AUTO) 3.23 MIL/uL (4.5-6.0)
--- NOTE | 2017-11-29 19:16 | NUR ---
CARDROOM DRAWING RUNNER ENDORSED TO NIGHT NURSE TO CALL MD BRIAN Phillips RESULTS OF CBC.
[2017-11-29 19:21] LABS: WHITE BLOOD COUNT (AUTO) 41.7 K/uL (4.3-11.0)
[2017-11-29 19:27] LABS: BAND % (MANUAL) 22 % (0.0-5.0); LYMPHOCYTES % (MANUAL) 9 % (16-48); MONOCYTES % (MANUAL) 3 % (0-11.0); NEUTROPHILS % (MANUAL) 66 (42-76)
--- NOTE | 2017-11-29 19:30 | NUR ---
RN NOTES RECEIVED PT. AWAKE ON BED, A/OX2-3, A-FIB ON TELE MONITOR HR-101, DENIES PAIN, NO SOB, CALL LIGHT WITHIN REACH, SIDERAILSUPX2, CONTINUE TO MONITOR
--- NOTE | 2017-11-29 20:45 | NUR ---
RN NOTES PT'S SISTER OLIMPIA, ANTOINETTE CALLED AND INFORMED ME THAT SHE WANT TO CANCEL THE BONE MARROW BIOPSY TOMORROW BECAUSE SHE WANTS TO TALK TO HE DOCTOR FIRST, CHARGE NURSE MADE AWARE
[2017-11-29] MEDS ORDERED: CARVEDILOL 3.125 MG TABLET PO SCH (21:00)
--- NOTE | 2017-11-29 21:15 | NUR ---
RN NOTES INFORMED DR. PAYNE ABOUT PT.'S SISTER DECISION. DR. PAYNE ASKED FOR PT'S SISTER PHONE NUMBER SO SHE CAN CALL PT'S SISTER
[2017-11-29] MEDS: ATORVASTATIN 10 MG TABLET PO SCH (21:57)
--- NOTE | 2017-11-29 23:00 | NUR ---
RN NOTES DR. PAYNE TALKED TO THE PT'S SISTER ANTOINETTE DOAN. DR. PAYNE WILL NOT PUSH THROUGH WITH THE BIOPSY TOMORROW AND WILL JUST CONTINUE THE ANTIBIOTIC FOR NOW
[2017-11-30] VITALS: BP_SYST 102; BP_SYST 127; BP_DIAS 57; BP_DIAS 83
[2017-11-30] MEDS: MEROPENEM 1 G in IV NS 0.9% 100 ML IV SCH ×2 (00:07→12:13)
[2017-11-30] MEDS: BLOOD SUGAR DIAGNOSTIC 1 EACH STRIP IN SCH ×4 (06:34→21:19)
[2017-11-30] MEDS: INSULIN ASPART/LISPRO 100 UNIT/ML CARTRIDGE SQ PRN ×4 (06:36→21:26)
--- NOTE | 2017-11-30 06:43 | NUR ---
BLOOD SUGAR 174 MG/DL 3 UNITS GIVEN
[2017-11-30 06:49] LABS: HEMATOCRIT 26 % (39-51); HEMOGLOBIN 8.5 g/dL (13.5-17.5); LYMPHOCYTES # (AUTO) 2.8 /CMM (0.8-4.8); LYMPHOCYTES % (AUTO) 8.1 % (20.0-44.0); MEAN CORPUSCULAR HGB CONC 32 g/dl (31.0-36.0); MEAN CORPUSCULAR VOLUME 86 fL (80-96); MONOCYTES # (AUTO) 0.1 /CMM (0.1-1.30); MONOCYTES % (AUTO) 0.4 % (2.0-12.0); NEUTROPHILS # (AUTO) 31.8 /CMM (1.8-8.9); NEUTROPHILS % (AUTO) 91.5 % (43.0-81.0); PLATELET COUNT (AUTO) 72 /CMM (150-450); RDW COEFFICIENT OF VARIATION 15.3 (11.5-15.0); RED BLOOD CELL COUNT(AUTO) 3.06 MIL/uL (4.5-6.0)
--- NOTE | 2017-11-30 07:05 | NUR ---
GROUNDHAND OPENING NOTES. PT RECEIVED SLEEPY, ALERT TO SELF, REQUESTING MORE SLEEP AND 'TO IN PE[place]'. PT WITH O2 VIA NC AT 3LPM WITHOUT DISTRESS, AUSCULTATED WITH UPPER AIRWAY RHONCHI AND DIMINISHED LOWER LOBES. PT DENIES PAIN AT THIS TIME. PT WITH IVC AT R WRIST INTACT AND SALINE FLUSH PATENT. MARTINEZ INTACT AND DRAINING CLOUDY URINE. KCI MATTRESS ORDERED FROM [facility] R/T YAMINI, PT REPOSITIONED. PT BED IN LOWEST LOCKED POSITION WITH HANDRAILSX2 AND CALL MUELLER WITHIN REACH. PT BRIEFED ON TODAY'S POC, WILL CONTINUE POC.
--- NOTE | 2017-11-30 07:20 | NUR ---
RN NOTES AWAKE, MORNING CARE RENDERED, CALL LIGHT WITHIN REACH, RAINERAILSUPX2, PT. NEEDS ATTENDED
[2017-11-30 07:38] LABS: WHITE BLOOD COUNT (AUTO) 34.8 K/uL (4.3-11.0)
[2017-11-30 07:42] LABS: BAND % (MANUAL) 1 % (0.0-5.0); EOSINOPHILS % (MANUAL) 1 % (0-4); LYMPHOCYTES % (MANUAL) 6 % (16-48); MONOCYTES % (MANUAL) 9 % (0-11.0); NEUTROPHILS % (MANUAL) 83 (42-76)
[2017-11-30] MEDS: ASPIRIN 81 MG TAB.CHEW PO SCH (08:08)
[2017-11-30] MEDS: CARVEDILOL 3.125 MG TABLET PO SCH ×2 (08:08→20:59)
[2017-11-30 08:32] VITALS: BP 136/79
[2017-11-30] MEDS: INSULIN GLARGINE, 100 UNIT/ML CARTRIDGE SQ SCH ×2 (10:35→21:23)
--- NOTE | 2017-11-30 11:38 | NUR ---
AMBROSE GONZALES. LOW AIR LOSS MATTRESS PLACED.
[2017-11-30] MEDS: Z GUARD REMEDY 2 OZ OINT TP SCH (12:50)
[2017-11-30] MEDS: HYDROGEL DRESSING 90 GM TUBE TP SCH (12:50)
--- NOTE | 2017-11-30 14:45 | NUR ---
MSRN. PT SEEN BY MD BRIAN Phillips MD INSPECTED RASH AND DOES NOT WANT SKIN SCRAPPING DONE AND IS OK TO D/C ISOLATION. ID CONSULT REQUESTED, WILL D/C ISO AFTER CONSULTATION.
[2017-11-30 16:02] VITALS: BP 120/73
[2017-11-30] MEDS ORDERED: FEE PK DOSING 1 MIN EA MC ONE (18:30)
[2017-11-30] MEDS ORDERED: PERMETHRIN 5% CRM 60 GM TUBE TP ONE ×2 (18:30→21:00)
--- NOTE | 2017-11-30 18:40 | NUR ---
RN CLOSING NOTES. PT WITH CONT PRECS. PT REMAINS A&0X3 AND TOLERATING ROOM AND DENIES PAIN. PT WITH IVC AT R AC G#18 SL. PT WOUND CARE COMPLETED PER RX. PT CONDOM CATH INTACT AND OPERATIONAL WITH 70CC IN COLLECTION, BUT MULTIPLE WET DIAPERS PRIOR. BED IN LOWEST LOCKED POSITION WITH HANDRAILSX2 AND CALL MUELLER WITHIN REACH.ALL DAY NURSE DUTIES ATTENDED TO AND PT IS WITHOUT CONCERN OR COMPLAINT, WILL ENDORSE TO NIGHT NURSE AT BEDSIDE FOR MOISES.
[2017-11-30 20:00] VITALS: BP 151/90
[2017-11-30] MEDS ORDERED: GENTAMICIN 120 MG in IV D5W 100 ML IV SCH (20:00)
--- NOTE | 2017-11-30 20:00 | NUR ---
rn ms notes upon body assessment noted with right ear wound, picture taken, wound consult in place, site cleansed and protected with cushion. no bleeding at this time, will continue to monitor.
[2017-11-30] MEDS: DOXYCYCLINE HYCLATE (100 MG) 100 MG TABLET PO SCH (20:58)
[2017-11-30] MEDS: ATORVASTATIN 10 MG TABLET PO SCH (21:02)
[2017-11-30] MEDS: TRAMADOL HCL 50 MG TABLET PO PRN (21:15)
[2017-11-30] MEDS: METRONIDAZOLE 500MG/ NS 100ML 500 MG in PREMIX 1 EA IV SCH (21:34)
--- NOTE | 2017-11-30 23:32 | NUR ---
RN MS OPENING NOTES RECEIVED PATIENT IN BED, AWAKE ALERT AND ORIENTED X2, ABLE TO MAKE SIMPLE NEEDS KNOWN, ON O2 3 L VIA NC. SPO2 93%. NO RESPIRATORY DISTRESS PRESENT, DENIES ANY COMPLAINTS OF PAIN OR DISCOMFORT AT THIS TIME, ON CONTACT ISOLATION FOR RULE OUT SCABIES. MARTINEZ CATHETER INTACT AND DRAINING WELL. NOTED URINE THOMAS YELLOW COLOR, HEAD OF BED ELEVATED FOR ASPIRATION PRECAUTIONS, RIGTH FA IV SITE 320 G INTACT AND PATENT, NO REDNESS,NO INFILTRATION PRESENT. SPECIAL LOW AIR LOSS MATTRESS IN PLACE WORKING PROPERLY, ORIENTED TO STAFF AND CALL LIGHT AND KEPT WITHIN REACH, SAFETY PRECAUTIONS IN PLACE, LOW BED AND LOCKED, FALL PRECAUTIONS IN PLACE, BED ALARM IN PLACE, ALL NEEDS ATTENDED AT THIS TIME, WILL CONTINUE TO MONITOR. Addendum: 11/30/17 at 2341 by ART TOPETE RN CLARIFICATION OF TIME 1909
--- NOTE | 2017-12-01 00:30 | NUR ---
RN MS NOTES BLOOD SUGAR REASSESSED NOTED AT 144. NO EPISODE OF HYPOGLYCEMIA
[2017-12-01] MEDS: METRONIDAZOLE 500MG/ NS 100ML 500 MG in PREMIX 1 EA IV SCH ×2 (04:27→13:59)
[2017-12-01] MEDS: BLOOD SUGAR DIAGNOSTIC 1 EACH STRIP IN SCH ×4 (06:21→22:12)
--- NOTE | 2017-12-01 06:45 | NUR ---
RN MS CLOSING NOTES PATIENT IN BED, AWAKE ALERT AND ORIENTED X2, ABLE TO MAKE SIMPLE NEEDS KNOWN, ON O2 3 L VIA NC. SPO2 94%. NO RESPIRATORY DISTRESS PRESENT, DENIES ANY COMPLAINTS OF PAIN OR DISCOMFORT AT THIS TIME, ON CONTACT ISOLATION FOR RULE OUT SCABIES. MARTINEZ CATHETER INTACT AND DRAINING WELL. NOTED URINE THOMAS YELLOW COLOR, MARTINEZ CATHETER WAS CHANGED ORDERED, HEAD OF BED ELEVATED FOR ASPIRATION PRECAUTIONS, RIGHT FA IV SITE #20 G INTACT AND PATENT, NO REDNESS,NO INFILTRATION PRESENT. SPECIAL LOW AIR LOSS MATTRESS IN PLACE WORKING PROPERLY, CALL LIGHT KEPT WITHIN REACH, SAFETY PRECAUTIONS IN PLACE, LOW BED AND LOCKED, FALL PRECAUTIONS IN PLACE, BED ALARM IN PLACE, ALL NEEDS ATTENDED AT THIS TIME,REPOSITIONED FOR WOUND CARE AND MANAGEMENT WOUND CARE DONE, DRESSINGS DRY AND INTACT WILL CONTINUE TO MONITOR AND ENDORSE TO NEXT SHIFT.
--- NOTE | 2017-12-01 07:51 | NUR ---
RN OPENING NOTES RECEIVED PT. IN BED A&OX2-3. BREATHING UNLABORED ON OXYGEN AT 3L/MIN VIA NASAL CANNULA. NO SOB, NO S/S OF ACUTE DISTRESS. PT. IS ON ISOLATION TO R/O SCABIES. PT. IS ON AN ISOFLEX MATTRESS. BED IS IN LOWEST, AND LOCKED POSITION. 2 SIDE RAILS UP, AND CALL LIGHT WITHIN REACH. ALL NEEDS MET. WILL CONTINUE TO ASSESS AND MONITOR.
[2017-12-01 08:00] VITALS: BP 157/98
[2017-12-01 08:29] LABS: CALCIUM, SERUM 8.2 mg/dL (8.5-10.1); CARBON DIOXIDE 27 mmol/L (21-32); CHLORIDE 104 mmol/L (98-107); CREATININE 0.8 mg/dL (0.6-1.3); GLUCOSE 125 mg/dL (74-106); POTASSIUM 3.8 mmol/L (3.5-5.1); SODIUM SERUM 139 mmol/L (136-145); UREA NITROGEN, BLOOD 29 mg/dL (7-18)
[2017-12-01] MEDS: DOXYCYCLINE HYCLATE (100 MG) 100 MG TABLET PO SCH (08:33)
[2017-12-01] MEDS: CARVEDILOL 3.125 MG TABLET PO SCH ×2 (08:33→21:56)
[2017-12-01] MEDS: ASPIRIN 81 MG TAB.CHEW PO SCH (08:33)
[2017-12-01] MEDS: LORATADINE 10 MG TABLET PO SCH (08:33)
[2017-12-01] MEDS: HYDROGEL DRESSING 90 GM TUBE TP SCH (08:37)
[2017-12-01] MEDS: Z GUARD REMEDY 2 OZ OINT TP SCH (08:37)
[2017-12-01] MEDS: INSULIN GLARGINE, 100 UNIT/ML CARTRIDGE SQ SCH ×2 (08:46→22:12)
--- NOTE | 2017-12-01 09:45 | NUR ---
ELIMITE CREAM REMOVED BY SPONGE BATH.
[2017-12-01] MEDS: INSULIN ASPART/LISPRO 100 UNIT/ML CARTRIDGE SQ PRN ×3 (12:04→22:15)
[2017-12-01] MEDS ORDERED: GENTAMICIN 100 MG in IV D5W 50 ML IV SCH (15:00)
[2017-12-01 16:00] VITALS: BP 134/75
--- NOTE | 2017-12-01 19:35 | NUR ---
MS RN OPENING NOTES RECEIVED PATIENT IN BED, AWAKE ALERT AND ORIENTED X2, ABLE TO MAKE SIMPLE NEEDS KNOWN, ON O2 3 L VIA NC. SPO2 96%. NO RESPIRATORY DISTRESS NOTED, DENIES ANY COMPLAINTS OF PAIN OR DISCOMFORT AT THIS TIME, ON CONTACT ISOLATION FOR RULE OUT SCABIES. MARTINEZ CATHETER INTACT AND DRAINING WELL. NOTED URINE THOMAS YELLOW COLOR, HEAD OF BED ELEVATED FOR ASPIRATION PRECAUTIONS, RFA IV SITE 20 G, SL, INTACT AND PATENT, NO REDNESS, NO INFILTRATION PRESENT. SPECIAL LOW AIR LOSS MATTRESS IN PLACE WORKING PROPERLY, ORIENTED TO STAFF AND CALL LIGHT AND KEPT WITHIN REACH, SAFETY PRECAUTIONS IN PLACE, LOW BED AND LOCKED, BED ALARM ON, WILL CONTINUE TO MONITOR CLOSELY.
[2017-12-01 20:00] VITALS: BP 133/78
[2017-12-01 20:01] VITALS: BP 133/78
--- NOTE | 2017-12-01 20:06 | NUR ---
TELEPHONE ORDER GIVEN BY DR. ZAMAN TO STOP ALL CURRENT ANTIBIOTICS AND TO RESTART MERREM 1 GM Q12 HS.
[2017-12-01] MEDS ORDERED: MEROPENEM 1 G VIAL IV ONE (20:34)
[2017-12-01] MEDS: MEROPENEM 1 G in IV NS 0.9% 100 ML IV SCH (20:45)
[2017-12-01] MEDS: ATORVASTATIN 10 MG TABLET PO SCH (21:56)
[2017-12-02] VITALS (7 sets, daily range): BP systolic 104–155; BP diastolic 61–85
--- NOTE | 2017-12-02 06:55 | NUR ---
MS RN CLOSING NOTES PATIENT SLEPT INTERMITTENTLY AT NIGHT, AWAKE ALERT AND ORIENTED X2, ABLE TO MAKE SIMPLE NEEDS KNOWN, ON O2 3 L VIA NC. SPO2 95%. NO RESPIRATORY DISTRESS NOTED, DENIES ANY C/O OF PAIN OR DISCOMFORT AT THIS TIME, ON CONTACT ISOLATION TO RULE OUT SCABIES. MARTINEZ CATHETER INTACT AND DRAINING WELL. NOTED URINE THOMAS YELLOW COLOR, HEAD OF BED ELEVATED FOR ASPIRATION PRECAUTIONS, RFA IV SITE 20 G, SL, INTACT AND PATENT, NO REDNESS, NO INFILTRATION PRESENT. SACRAL WOUND DRESSING DONE. TURNED & REPOSITIONED PER PROTOCOL. KEPT CLEAN & DRY. SPECIAL LOW AIR LOSS MATTRESS IN PLACE WORKING PROPERLY, ORIENTED TO STAFF AND CALL LIGHT AND KEPT WITHIN REACH, SAFETY PRECAUTIONS IN PLACE, LOW BED AND LOCKED, BED ALARM ON, WILL ENDORSE TO AM RN.
[2017-12-02] MEDS: BLOOD SUGAR DIAGNOSTIC 1 EACH STRIP IN SCH ×4 (07:26→21:23)
[2017-12-02] MEDS: INSULIN ASPART/LISPRO 100 UNIT/ML CARTRIDGE SQ PRN ×4 (07:29→21:26)
--- NOTE | 2017-12-02 07:48 | NUR ---
RN OPENING NOTES RECEIVED PT. IN BED SLEEPING. BREATHING IS UNLABORED ON OXYGEN AT 3L/MIN VIA NASAL CANNULA. NO S/S OF ACUTE DISTRESS. IV FLUIDS AT BEDSIDE. MARTINEZ CATHETER IN PLACE. BED IS IN LOWEST, AND LOCKED POSITION. 2 SIDE RAILS UP, AND CALL LIGHT WITHIN REACH. ALL NEEDS MET. WILL CONTINUE TO ASSESS AND MONITOR.
[2017-12-02] MEDS: TRAMADOL HCL 50 MG TABLET PO PRN ×3 (08:22→21:15)
[2017-12-02] MEDS: ASPIRIN 81 MG TAB.CHEW PO SCH (08:23)
[2017-12-02] MEDS: CARVEDILOL 3.125 MG TABLET PO SCH ×2 (08:23→21:14)
[2017-12-02] MEDS: LORATADINE 10 MG TABLET PO SCH (08:23)
[2017-12-02] MEDS: HYDROGEL DRESSING 90 GM TUBE TP SCH (08:29)
[2017-12-02] MEDS: Z GUARD REMEDY 2 OZ OINT TP SCH (08:29)
[2017-12-02] MEDS: INSULIN GLARGINE, 100 UNIT/ML CARTRIDGE SQ SCH ×2 (08:34→21:23)
[2017-12-02 08:55] LABS: EOSINOPHILS % (AUTO) 0.1 % (0.0-6.0); HEMATOCRIT 27 % (39-51); HEMOGLOBIN 8.8 g/dL (13.5-17.5); LYMPHOCYTES # (AUTO) 3.4 /CMM (0.8-4.8); MEAN CORPUSCULAR HGB CONC 33 g/dl (31.0-36.0); MEAN CORPUSCULAR VOLUME 87 fL (80-96); MONOCYTES # (AUTO) 0.1 /CMM (0.1-1.30); MONOCYTES % (AUTO) 0.4 % (2.0-12.0); NEUTROPHILS # (AUTO) 27.8 /CMM (1.8-8.9); NEUTROPHILS % (AUTO) 88.5 % (43.0-81.0); PLATELET COUNT (AUTO) 56 /CMM (150-450); RDW COEFFICIENT OF VARIATION 16.1 (11.5-15.0); RED BLOOD CELL COUNT(AUTO) 3.09 MIL/uL (4.5-6.0)
[2017-12-02 09:00] LABS: ALANINE AMINOTRANSFERASE 49 U/L (12-78); ALKALINE PHOSPHATASE 61 U/L (46-116); ASPARTATE AMINOTRANSFERASE 49 U/L (15-37); BILIRUBIN,TOTAL 0.6 mg/dL (0.2-1.0); CARBON DIOXIDE 25 mmol/L (21-32); CHLORIDE 104 mmol/L (98-107); GLUCOSE 161 mg/dL (74-106); POTASSIUM 3.8 mmol/L (3.5-5.1); SODIUM SERUM 137 mmol/L (136-145); TOTAL PROTEIN, SERUM 5.7 g/dL (6.4-8.2); UREA NITROGEN, BLOOD 31 mg/dL (7-18)
[2017-12-02 09:06] LABS: WHITE BLOOD COUNT (AUTO) 31.4 K/uL (4.3-11.0)
[2017-12-02] MEDS: MEROPENEM 1 G in IV NS 0.9% 100 ML IV SCH ×2 (09:23→21:14)
[2017-12-02 10:42] LABS: ALBUMIN 1.3 g/dL (3.4-5.0)
[2017-12-02 12:14] LABS: BAND % (MANUAL) 2 % (0.0-5.0); LYMPHOCYTES % (MANUAL) 7 % (16-48); MONOCYTES % (MANUAL) 9 % (0-11.0); NEUTROPHILS % (MANUAL) 82 (42-76)
--- NOTE | 2017-12-02 17:00 | NUR ---
PT. WAS HAVING S/S OF PAIN. MD WAS NOTIFIED AND NEW ORDERS WERE GIVEN FOR DILAUDID 0.25 MG IV Q2HS, AND SENOKOT 8.6 MG TWO TABS AT BEDTIME.
[2017-12-02] MEDS ORDERED: HYDROMORPHONE 1 MG/1 ML DISP.SYRIN IV PRN (17:30)
--- NOTE | 2017-12-02 18:27 | NUR ---
PT. WAS HAVING SIGNS OF IRREGULAR HEART RATE ON AUSCULTATION AND PALPATION, HR WOULD CHANGE FROM 91 TO 105 BPM. MD WAS NOTIFIED, AND NEW ORDERS GIVEN TO CHECK TSH LEVELS, TOMORROW, AN ECHO, AND AN EKG.
--- NOTE | 2017-12-02 18:29 | NUR ---
EKG WAS PERFORMED AT BEDSIDE BY RESPIRATORY THERAPIST, AND REPORT WAS SHOWN TO MD, AND PLACED IN CHART.
--- NOTE | 2017-12-02 19:03 | NUR ---
RN CLOSING NOTES PT. IN BED SLEEPING. BREATHING IS UNLABORED ON OXYGEN AT 3L/MIN VIA NASAL CANNULA. NO S/S OF ACUTE DISTRESS. IV FLUIDS AT BEDSIDE. MARTINEZ CATHETER IN PLACE HAD 600 CC OF THOMAS, CLOUDY URINE WITH SEDIMENTATION. BED IS IN LOWEST, AND LOCKED POSITION. 2 SIDE RAILS UP, AND CALL LIGHT WITHIN REACH. ALL NEEDS MET. WILL ENDORSE REPORT. NEW EKG WAS PLACED IN PT.'S CHART.
--- NOTE | 2017-12-02 19:50 | NUR ---
RN INITIAL NOTES: RECEIVED REPORT FROM MURIEL GONAZLES. PT IN BED, DOZING OFF,JUST RECEIVED PAIN MEDS NOT TOO LONG AGO. , A/O X2 ON 3L NC RESPIRATION EVEN AND UNLABORED, APPEARS CALM AND COMFORTABLE, NO FACIAL GRIMACE NOTED. IV ACCESS PATENT AND FLUSHING WELL, ON HL. NOTED EDEMA ON BUE, OFFLOADED ON PILLOWS. MD AWARE OF ALL LAB RESULT TODAY, ALSO EKG DONE DUE TO IRREGULAR HEARTBEAT, MD AWARE OF RESULT PER MD NO ANTICOAGULATION AT THIS TIME DUE TO LOW PLATELET. BLE OFFLOADED. NO SCD PER DR ZAMAN. KCI IN USE. S/P ELAMITE CREAM TREATMENT ON 11/30 THAT WAS WASHED ON 12/01/17. SAFETY PRECAUTIONS FOR FALL INITIATED, CALL LIGHT IN REACH, WILL CONTINUE MONITORING PT.
[2017-12-02] MEDS: SENNOSIDES 8.6 MG TABLET PO SCH (21:14)
[2017-12-02] MEDS: ATORVASTATIN 10 MG TABLET PO SCH (21:14)
--- NOTE | 2017-12-02 21:15 | NUR ---
PRN ULTRAM: PT C/O GENERALIZED PAIN 07/29 PRN ULTRAM ADMINISTERED AT THIS TIME, WILL CONTINUE TO MONITOR AND REASSESS
--- NOTE | 2017-12-02 21:27 | NUR ---
accu check 176: blood sugar test performed and result is 176, 3units of insulin lispro given per sliding scale. will monitor for any s/s of hypoglycemia
--- NOTE | 2017-12-03 00:09 | NUR ---
RN NOTES: NOTED RFA IV ACCESS LEAKING, REMOVED IV PRESSURED DRESSING APPLIED, RESTARTED NEW IV ACCESS ON LEFT FA G 20 USING ACCU VEIN, GOOD BLOOD RETURN NOTED, SECURED WITH DRESSING AND PROPERLY LABELED.
--- NOTE | 2017-12-03 01:00 | NUR ---
ACCU CHECK 167: BLOOD SUGAR RECHECK AFTER 3HRS OF GIVING LISPRO, RESULT IS 167.
--- NOTE | 2017-12-03 05:03 | NUR ---
RN NOTES/ CONTINUITY OF CARE PT IS ASLEEP IN BED. O2 VIA NASAL CANNULA AT 3L, NO SIGNS OF DISTRESS, NO LABORED BREATHING. MARTINEZ IS INTACT, DRAINING CLOUDY, FOUL SMELLING URINE. IV ACCESS ON THE LEFT FOREARM 20G PATENT AND INTACT. NO SIGNS OF PAIN. WILL CONTINUE TO MONITOR AND ASSESS PT.
--- NOTE | 2017-12-03 05:10 | NUR ---
RN CLOSING NOTES: PT IN BED, SLEEPING, APPEARS CALM AND COMFORTABLE, REMAINS ON 3L OXYGEN VIA NC, RESPIRATION EVEN AND UNLABORED. IV ACCESS REMAINS PATENT AND FLUSHING WELL, ON HL. BLE KEPT OFFLOADED. PILLOW PLACED IN BETWEEN PT'S LEG. REMAINS ON SCABIES ISOLATION. SAFETY PRECAUTIONS FOR FALL REMAINS ENGAGED, CALL LIGHT IN REACH, REPORT GIVEN TO JANET BHARDWAJ FOR CONTINUITY OF CARE.
--- NOTE | 2017-12-03 06:28 | NUR ---
RN CLOSING NOTES PT IS ASLEEP IN BED, EASILY AROUSED TO TOUCH AND LIGHT PAIN. MARTINEZ IS INTACT, DRAINING CLOUDY URINE. IV ACCESS ON THE LEFT FOREARM 20G PATENT AND INTACT. PT IS RECEIVING O2 VIA NASAL CANNULA AT 3L, TOLERATING WELL, NO SIGNS OF DISTRESS, NO LABORED BREATHING, NO SOB. SAFETY MEASURES IN PLACED, CALL LIGHT WITHIN REACH. WILL ENDORSE CONTINUITY OF CARE TO ONCOMING RN.
[2017-12-03 07:05] LABS: BASOPHILS % (AUTO) 0.1 % (0.0-2.0); HEMATOCRIT 26 % (39-51); HEMOGLOBIN 8.5 g/dL (13.5-17.5); LYMPHOCYTES # (AUTO) 3.5 /CMM (0.8-4.8); MEAN CORPUSCULAR HGB CONC 32 g/dl (31.0-36.0); MEAN CORPUSCULAR VOLUME 88 fL (80-96); MONOCYTES # (AUTO) 0.3 /CMM (0.1-1.30); NEUTROPHILS # (AUTO) 30.6 /CMM (1.8-8.9); NEUTROPHILS % (AUTO) 88.9 % (43.0-81.0); PLATELET COUNT (AUTO) 54 /CMM (150-450); RDW COEFFICIENT OF VARIATION 16.3 (11.5-15.0)
[2017-12-03 07:15] LABS: CALCIUM, SERUM 7.9 mg/dL (8.5-10.1); CARBON DIOXIDE 26 mmol/L (21-32); CHLORIDE 107 mmol/L (98-107); CREATININE 1.1 mg/dL (0.6-1.3); GLUCOSE 172 mg/dL (74-106); SODIUM SERUM 143 mmol/L (136-145); UREA NITROGEN, BLOOD 35 mg/dL (7-18)
[2017-12-03] MEDS: BLOOD SUGAR DIAGNOSTIC 1 EACH STRIP IN SCH ×4 (07:30→21:39)
--- NOTE | 2017-12-03 07:30 | NUR ---
MS RN OPENING NOTES PT RECIEVED IN BED AT LOWEST AND LOCKED POSITION WITH SIDE RAILS UP X2, A/O X1-2, BREATHING IS EVEN AND UNLABORED ON 3L VIA NC, PT WAS NOTED TO HAVE MARTINEZ IN PLACE AND DRAINING, IV IS PATENT AND INTACT, SAFETY PRECUATIONS IN PLACE, CALL LIGHT IN REACH WILL MONITOR ACCORDINGLY
[2017-12-03 07:33] LABS: WHITE BLOOD COUNT (AUTO) 34.4 K/uL (4.3-11.0)
--- NOTE | 2017-12-03 08:00 | NUR ---
PT BG WAS NOTED TO BE 164, INSULIN LANTUS WAS SCHEDULED 5 UNITS SO THAT WAS GIVEN. WILL MONITOR ACCORDINGLY
[2017-12-03 08:03] LABS: NEUTROPHILS % (MANUAL) 86 (42-76)
[2017-12-03 08:04] LABS: LYMPHOCYTES % (MANUAL) 7 % (16-48); MONOCYTES % (MANUAL) 7 % (0-11.0)
[2017-12-03 08:32] VITALS: BP 120/67
[2017-12-03] MEDS: LORATADINE 10 MG TABLET PO SCH (08:36)
[2017-12-03] MEDS: MEROPENEM 1 G in IV NS 0.9% 100 ML IV SCH ×2 (08:36→21:46)
[2017-12-03] MEDS: ASPIRIN 81 MG TAB.CHEW PO SCH (08:37)
[2017-12-03] MEDS: INSULIN GLARGINE, 100 UNIT/ML CARTRIDGE SQ SCH ×2 (08:38→22:01)
[2017-12-03] MEDS: CARVEDILOL 3.125 MG TABLET PO SCH ×2 (08:39→21:38)
[2017-12-03] MEDS: HYDROGEL DRESSING 90 GM TUBE TP SCH (08:39)
[2017-12-03] MEDS: Z GUARD REMEDY 2 OZ OINT TP SCH (08:40)
--- NOTE | 2017-12-03 10:16 | NUR ---
WOUND CARE CONSULT: PT SEEN FOR RT UPPER POSTERIOR EAR WOUND. RECOMMENDATIONS MADE FOR WOUND CARE AND SKIN PROTECTION. DISCUSSED WITH NURSING STAFF AND Drake MCKINLEY, SURGICAL NDennisP. WILL SEE PRN. AARON IN AGREEMENT WITH PLAN OF CARE. Addendum: 12/03/17 at 1017 by KRISTIE VAZQUEZ WNDNU Amended: Links added.
[2017-12-03] MEDS: BACITRACIN/POLYMYXIN B 15 GM TUBE TP SCH (10:55)
[2017-12-03] MEDS: INSULIN ASPART/LISPRO 100 UNIT/ML CARTRIDGE SQ PRN ×2 (11:56→16:59)
--- NOTE | 2017-12-03 11:59 | NUR ---
BG WAS NOTED TO BE 179, INSULIN ASPART 3 UNITS WAS GIVEN, WILL MONITOR ACCORDINGLY
[2017-12-03 16:09] VITALS: BP 111/69
--- NOTE | 2017-12-03 16:55 | NUR ---
PT BG NOTED TO BE 180, PER SLIDING SCALE 3 UNITS GIVEN, WILL MONITOR ACCORDINGLY
--- NOTE | 2017-12-03 18:23 | NUR ---
MS RN CLOSING NOTES PT IN BED AT LOWEST AND LOCKED POSITION WITH SIDE RAILS UP X2, A/O X1-2, BREATHING IS EVEN AND UNLABORED ON 3L VIA NC, PT WAS NOTED TO HAVE MARTINEZ IN PLACE AND DRAINING, IV IS PATENT AND INTACT, WOUND NURSE CAME TO ASSESS RIGHT EAR WOUND AND CLASSIFIED IT A STAGE 2 HAPU, ORDERS GIVEN TO CLEANSE WOUND WITH NS/PAT DRY/APPLY POLYSPORIN/APPLY MEPILEX, SAFETY PRECAUTIONS IN PLACE, CALL LIGHT IN REACH, ALL NEEDS ATTENDED TO, WILL ENDORSE TO ONCOMING WEIGHMASTER LEAD NURSE FOR CONTINUITY OF CARE.
--- NOTE | 2017-12-03 19:35 | NUR ---
RN OPENING NOTES RECEIVED REPORT FROM DAYSHIFT JANET KELLY. FOUND Pt ASLEEP IN BED, NO S/S OF ACUTE DISTRESS OR SOB NOTED. RESPIRATIONS EVEN AND UNLABORED. Pt IS A/OX1-2, WITH SOME CONFUSION; Pt IS VERBAL AND ABLE TO MAKE CERTAIN NEEDS KNOWN. MARTINEZ CATHETER IN PLACE, DRAINING WELL. IV ACCESS ON LFA #20G, SL. SAFETY MEASURES IN PLACE. BED LOW, LOCKED, HOB ELEVATED, SIDE RAILS UP, CALL LIGHT AND BEDSIDE TABLE WITHIN REACH. WILL CONTINUE TO MONITOR Pt THROUGHOUT THE NIGHT FOR SAFETY.
[2017-12-03 20:00] VITALS: BP 121/72
[2017-12-03] MEDS: SENNOSIDES 8.6 MG TABLET PO SCH (21:38)
[2017-12-03] MEDS: ATORVASTATIN 10 MG TABLET PO SCH (21:38)
--- NOTE | 2017-12-03 22:05 | NUR ---
RN NOTES BG 205. ADMINISTERED 5UN OF GLARGINE PER MD ORDER.
--- NOTE | 2017-12-04 05:07 | NUR ---
rn notes pt c/o pain 09/28 lower back/sacrum area. administered prn dilaudid 0.25mg for pain management per md order. vs stable. will continue to monitor pt.
[2017-12-04] MEDS: BLOOD SUGAR DIAGNOSTIC 1 EACH STRIP IN SCH ×4 (06:30→22:58)
--- NOTE | 2017-12-04 06:30 | NUR ---
RN NOTES BG 159. ADMINISTERED 2UN OF HUMALOG PER SLIDING SCALE RANGE.
--- NOTE | 2017-12-04 06:35 | NUR ---
RN CLOSING NOTES NO SIGNIFICANT CHANGES IN Pt's CONDITION. Pt REMAINS STABLE AT THIS TIME. NO S/S OF ACUTE DISTRESS OR SOB NOTED DURING THE NIGHT. RESPIRATIONS EVEN AND UNLABORED. ALL NEEDS MET AND ATTENDED TO. SAFETY MEASURES IN PLACE. BED LOW, LOCKED, HOB ELEVATED, & SIDE RAILS UP. WILL ENDORSE TO DAYSHIFT RN FOR Pt's MOISES.
[2017-12-04] MEDS: INSULIN ASPART/LISPRO 100 UNIT/ML CARTRIDGE SQ PRN ×3 (06:37→23:22)
[2017-12-04 07:08] LABS: HEMATOCRIT 27 % (39-51); HEMOGLOBIN 8.6 g/dL (13.5-17.5); MEAN CORPUSCULAR HGB CONC 32 g/dl (31.0-36.0); MEAN CORPUSCULAR VOLUME 87 fL (80-96); RDW COEFFICIENT OF VARIATION 16.6 (11.5-15.0); RED BLOOD CELL COUNT(AUTO) 3.07 MIL/uL (4.5-6.0)
[2017-12-04 07:22] LABS: CALCIUM, SERUM 8.1 mg/dL (8.5-10.1); CARBON DIOXIDE 28 mmol/L (21-32); CHLORIDE 107 mmol/L (98-107); GLUCOSE 157 mg/dL (74-106); POTASSIUM 3.8 mmol/L (3.5-5.1); SODIUM SERUM 144 mmol/L (136-145); UREA NITROGEN, BLOOD 33 mg/dL (7-18)
[2017-12-04 07:29] LABS: PLATELET COUNT (AUTO) 49 /CMM (150-450); WHITE BLOOD COUNT (AUTO) 34.3 K/uL (4.3-11.0)
--- NOTE | 2017-12-04 07:30 | NUR ---
MS RN NOTES PATIENT IN BED AWAKE, VERBALLY RESPONSIVE, NO ACUTE DISTRESS NOTED, BREATHING UNLABORED. DENIED ANY PAIN AT THIS TIME. SAFETY MEASURES IN PLACE.HOB ELEVATED. WILL CONTINUE TO MONITOR ACCORDINGLY.
[2017-12-04 07:39] LABS: LYMPHOCYTES % (MANUAL) 5 % (16-48); MONOCYTES % (MANUAL) 12 % (0-11.0); NEUTROPHILS % (MANUAL) 83 (42-76)
[2017-12-04 08:00] VITALS: BP 156/81
--- NOTE | 2017-12-04 09:00 | NUR ---
MS RN NOTES PATIENT SEEN BY DR ZAMAN, AWARE OF ABNORMAL LAB VALUES INCLUDING WBC AND PLATLETS. HE'S ALSO AWARE THAT SISTER MAGGY WANTS TO SPEAK WITH HIM AND HE WILL CALL.
[2017-12-04] MEDS: ASPIRIN 81 MG TAB.CHEW PO SCH (09:44)
[2017-12-04] MEDS: LORATADINE 10 MG TABLET PO SCH (09:44)
[2017-12-04] MEDS: CARVEDILOL 3.125 MG TABLET PO SCH ×2 (09:44→22:48)
[2017-12-04] MEDS: MEROPENEM 1 G in IV NS 0.9% 100 ML IV SCH ×2 (09:44→22:50)
[2017-12-04] MEDS: INSULIN GLARGINE, 100 UNIT/ML CARTRIDGE SQ SCH ×2 (09:46→23:20)
[2017-12-04] MEDS: BACITRACIN/POLYMYXIN B 15 GM TUBE TP SCH (09:47)
[2017-12-04] MEDS: HYDROGEL DRESSING 90 GM TUBE TP SCH (09:47)
[2017-12-04] MEDS: Z GUARD REMEDY 2 OZ OINT TP SCH (09:49)
[2017-12-04 16:00] VITALS: BP 135/90
--- NOTE | 2017-12-04 17:59 | NUR ---
MS RN NOTES PATIENT REFUSED DINNER, HELD INSULIN ADMINISTRATION. NO S/SX OF HYPO OR HYPERGLYCEMIA NOTED.
--- NOTE | 2017-12-04 19:00 | NUR ---
MS RN NOTES PATIENT IN BED AWAKE, VERBALLY RESPONSIVE, NO ACUTE DISTRESS NOTED, BREATHING UNLABORED. DENIED ANY PAIN AT THIS TIME. DUE MEDICATIONS GIVEN, NO ASE NOTED. NEEDS ATTENDED AND ANTICIPATED. KEPT CLEAN DRY AND COMFORTABLE. HOB ELEVATED. SAFETY MEASURES IN PLACE. MARTINEZ CATHETER INTACT, DRAINING WELL. ENDORSED TO NIGHT NURSE FOR CONTINUITY OF CARE..
--- NOTE | 2017-12-04 19:40 | NUR ---
RN OPENING NOTES RECEIVED REPORT FROM DEYANIRA CHAIDEZ. FOUND Pt RESTING IN BED. NO S/S OF ACUTE DISTRESS OR SEVERE SOB NOTED. Pt IS A/OX1-2, CONFUSED, BUT IS VERBAL AND ABLE TO MAKE NEEDS KNOWN. MARTINEZ CATHETER IN PLACE, DRAINING WELL. IV ACCESS ON LFA #20G @TKO. PER DEYANIRA RN, DR ZAMAN IS AWARE OF Pt's LABS AND WBC COUNT. DR ZAMAN IS ALSO AWARE THAT THE Pt's SISTER ANTOINETTE WANTS TO SPEAK WITH HIM, AND WILL CALL HER AND SPEAK TO HER. SAFETY MEASURES IN PLACE. BED LOW, LOCKED, HOB ELEVATED, & SIDE RAILS UP FOR SAFETY. WILL CONTINUE TO MONITOR Pt THROUGHOUT THE NIGHT FOR SAFETY.
[2017-12-04 20:00] VITALS: BP 154/98
--- NOTE | 2017-12-04 22:15 | NUR ---
RN NOTES HS ACCUCHECK BG 155. ADMINISTERED SCHEDULED LANTUS 5UN & ADDITIONAL COVERAGE 2UN NOVOLOG PER SLIDING SCALE.
[2017-12-04] MEDS: ATORVASTATIN 10 MG TABLET PO SCH (22:48)
[2017-12-04] MEDS: SENNOSIDES 8.6 MG TABLET PO SCH (22:48)
[2017-12-04] MEDS: TRAMADOL HCL 50 MG TABLET PO PRN (22:53)
[2017-12-05 06:20] LABS: EOSINOPHILS % (AUTO) 0.1 % (0.0-6.0); HEMATOCRIT 23 % (39-51); HEMOGLOBIN 7.5 g/dL (13.5-17.5); LYMPHOCYTES # (AUTO) 2.5 /CMM (0.8-4.8); LYMPHOCYTES % (AUTO) 10.7 % (20.0-44.0); MEAN CORPUSCULAR HGB CONC 33 g/dl (31.0-36.0); MEAN CORPUSCULAR VOLUME 87 fL (80-96); MONOCYTES # (AUTO) 0.1 /CMM (0.1-1.30); MONOCYTES % (AUTO) 0.5 % (2.0-12.0); NEUTROPHILS % (AUTO) 88.7 % (43.0-81.0); RDW COEFFICIENT OF VARIATION 16.9 (11.5-15.0); RED BLOOD CELL COUNT(AUTO) 2.67 MIL/uL (4.5-6.0); WHITE BLOOD COUNT (AUTO) 23.7 K/uL (4.3-11.0)
--- NOTE | 2017-12-05 06:29 | NUR ---
RN CLOSING NOTES NO SIGNIFICANT CHANGES IN Pt's CONDITION. Pt REMAINS STABLE AT THIS TIME. NO S/S OF ACUTE DISTRESS OR SEVERE SOB NOTED DURING THE NIGHT. RESPIRATIONS EVEN AND UNLABORED. ALL NEEDS MET AND ATTENDED TO. SAFETY MEASURES IN PLACE. BED LOW, LOCKED, HOB ELEVATED, & SIDE RAILS UP. WILL ENDORSE TO DAYSHIFT RN FOR Pt's MOISES.
--- NOTE | 2017-12-05 06:30 | NUR ---
RN NOTES ACCUCHECK 127. NO INSULIN COVERAGE NEEDED AT THIS TIME.
[2017-12-05] MEDS: BLOOD SUGAR DIAGNOSTIC 1 EACH STRIP IN SCH ×2 (06:40→11:56)
[2017-12-05 06:43] LABS: CALCIUM, SERUM 7.8 mg/dL (8.5-10.1); CARBON DIOXIDE 29 mmol/L (21-32); CHLORIDE 108 mmol/L (98-107); CREATININE 0.9 mg/dL (0.6-1.3); GLUCOSE 126 mg/dL (74-106); POTASSIUM 3.5 mmol/L (3.5-5.1); SODIUM SERUM 144 mmol/L (136-145); UREA NITROGEN, BLOOD 30 mg/dL (7-18)
[2017-12-05 06:50] LABS: PLATELET COUNT (AUTO) 37 /CMM (150-450)
--- NOTE | 2017-12-05 07:45 | NUR ---
RN NOTES PATIENT A/OX1-2, ABLE TO MAKE NEEDS KNOWN, BREATHING EVEN AND UNLABORED, NO SOB NOTED, NO DISTRESS NOTED, DENIES PAIN OR DISCOMFORT AT THIS TIME, CALL LIGHT WITHIN REACH, WILL CONTINUE TO MONITOR.
[2017-12-05 08:00] VITALS: BP 106/78
[2017-12-05 08:35] LABS: LYMPHOCYTES % (MANUAL) 6 % (16-48); MONOCYTES % (MANUAL) 6 % (0-11.0); NEUTROPHILS % (MANUAL) 88 (42-76)
[2017-12-05 09:51] VITALS: BP 106/78
[2017-12-05] MEDS: MEROPENEM 1 G in IV NS 0.9% 100 ML IV SCH (09:51)
[2017-12-05] MEDS: ASPIRIN 81 MG TAB.CHEW PO SCH (09:51)
[2017-12-05] MEDS: LORATADINE 10 MG TABLET PO SCH (09:51)
[2017-12-05] MEDS: CARVEDILOL 3.125 MG TABLET PO SCH (09:51)
[2017-12-05] MEDS: BACITRACIN/POLYMYXIN B 15 GM TUBE TP SCH (09:53)
[2017-12-05] MEDS: HYDROGEL DRESSING 90 GM TUBE TP SCH (09:53)
[2017-12-05] MEDS: Z GUARD REMEDY 2 OZ OINT TP SCH (09:54)
[2017-12-05] MEDS: INSULIN GLARGINE, 100 UNIT/ML CARTRIDGE SQ SCH (09:57)
[2017-12-05] MEDS: INSULIN ASPART/LISPRO 100 UNIT/ML CARTRIDGE SQ PRN (11:57)
--- NOTE | 2017-12-05 15:22 | NUR ---
DISCHARGE PATIENT A/OX1-2, VERBALLY RESPONSIVE, DISCHARGE INSTRUCTIONS AND REPORT GIVEN TO SUKUMAR AT THE [facility]. SKIN ASSESSMENT DONE, PHOTOS TAKEN AND PLACED IN CHART. WOUND TREATMENT RENDERED DRESSINGS CHANGED, SKIN CARE PROVIDED, MARTINEZ CATHETER STILL IN PLACE DUE TO URINARY RETENTION. NO BELONGINGS. PATIENT UNABLE TO SIGN PAPERWORKS, BUT INFORMED OF DISCHARGE AND INSTRUCTIONS. PT VERBALIZED UNDERSTANDINS OF PLAN OF CARE. PIV REMOVED APPLIED GAUZE AND TAPE. PATIENT LEFT THE FACILITY IN NO DISTRESS. PICKED UP BY 2 [employer].
== END 2017-12-05 15:25 | DRG 871 ==
LOC: ER 11:09 → TELE 13:38 → MED 11-29 09:40 → TELE 11-29 12:37 → MED 11-30 08:54
PROVIDERS: ADMIT Internal Medicine; ATTEND Internal Medicine
PROC: 30233N1 Transfusion of Nonautologous Red Blood Cells into Peripheral Vein, Percutaneous Approach (ICD-10-PCS; principal; 2017-11-28)
DX: A41.50 Gram-negative sepsis, unspecified (principal); J18.1 Lobar pneumonia, unspecified organism; N39.0 Urinary tract infection, site not specified; N17.9 Acute kidney failure, unspecified; E46 Unspecified protein-calorie malnutrition; E87.2 Acidosis; C79.51 Secondary malignant neoplasm of bone; I12.9 Hypertensive chronic kidney disease with stage 1 through stage 4 chronic kidney disease, or unspecified chronic kidney disease; N18.3 Chronic kidney disease, stage 3 (moderate); B96.1 Klebsiella pneumoniae [K. pneumoniae] as the cause of diseases classified elsewhere; Z88.0 Allergy status to penicillin; E11.22 Type 2 diabetes mellitus with diabetic chronic kidney disease; D69.6 Thrombocytopenia, unspecified; D63.8 Anemia in other chronic diseases classified elsewhere; F02.80 Dementia in other diseases classified elsewhere, unspecified severity, without behavioral disturbance, psychotic disturbance, mood disturbance, and anxiety; G30.9 Alzheimer's disease, unspecified; H91.90 Unspecified hearing loss, unspecified ear; I48.0 Paroxysmal atrial fibrillation; I25.10 Atherosclerotic heart disease of native coronary artery without angina pectoris; L89.150 Pressure ulcer of sacral region, unstageable; R09.02 Hypoxemia; Z79.82 Long term (current) use of aspirin; K57.90 Diverticulosis of intestine, part unspecified, without perforation or abscess without bleeding; D72.829 Elevated white blood cell count, unspecified; L89.892 Pressure ulcer of other site, stage 2
CPT/HCPCS: 36415; 70450-TC; 71045-TC; 80048-TC; 80053-TC; 80076-TC; 80170-TC; 81000-TC; 82962-TC; 83010; 83605-TC; 84443-TC; 84484-TC; 85025-TC; 85730-TC; 86850-TC; 86921-TC; 87040-TC; 87081-TC; 87086-TC; 87186-TC; 92526; 92611-TC; A4216; A4606; A6248; A6253; A6402; A6403; G0378; J1170; J1580; J1815; J2185; J2543; J3490; J7030; J7050; J7060; P9016-BL; Z7610